=== PATIENT | female | born 1965 | race Caucasian/White ===

== ENCOUNTER 2018-07-31 21:09 | Inpatient (IN) ==
[2018-08-01] MEDS ORDERED: Morphine Inj 4 MG/ML Vial IV.PUSH ONE (02:02)
[2018-08-01] MEDS ORDERED: Sod Chloride 0.9% Inj 1,000 ML IV.SIG ONE (02:02)
--- NOTE | 2018-08-01 02:05 | ED ---
HPI General Chief Complaint: Abdominal Pain Stated Complaint: abd pain Time Seen by Provider: 08/01/18 02:02 Source: patient Mode of arrival: ambulatory Limitations: no limitations History of Present Illness HPI narrative: 53-year-old female patient with history of hysterectomy, hypertension, presents to the ER today because of 4 days history of right-sided abdominal pain, nausea and vomiting. She denies any fevers, diarrhea, urinary symptoms, or other issues. She is currently rating the pain a 10 out of 10. Modifying Factors: None Associated Signs & Symptoms: Right-sided abdominal pain, nausea and vomiting Risk Factors: None Related Data Home Medications Medication Instructions Recorded Confirmed amlodipine 08/01/18 08/01/18 fluoxetine [Prozac] 60 mg PO DAILY 08/01/18 08/01/18 hydroxyzine pamoate [Vistaril] 50 mg PO QID PRN 08/01/18 08/01/18 ibuprofen 800 mg PO TID PRN 08/01/18 08/01/18 tizanidine 4 mg PO Q6-8H PRN 08/01/18 08/01/18 Allergies Allergy/AdvReac Type Severity Reaction Status Date / Time No Known Allergies Allergy Verified 07/31/18 22:20 Review of Systems ROS: all other systems reviewed are negative PMFSH History History Provided By: Patient Medical History Medical History Tonsillectomy planned (Acute) Surgical History Surgical History History of partial hysterectomy (Acute) Social History Social History Substance History: Active Abuse Smoking Status: Current every day smoker Tobacco Type: Cigarettes How Often Do You Have a Drink Containing Alcohol: 2 to 4 times a month Recent Travel in [facility] within the Last 8 Weeks: No Recent Out of Country Travel within the Last 8 Weeks: No Exam Narrative Exam Narrative: GENERAL: Well-developed middle-age female patient currently in moderate distress. Awake and oriented x3. SKIN: Focused skin assessment warm/dry. HEAD: Atraumatic. Normocephalic. EYES: Pupils equal and round. No scleral icterus. No injection or drainage. ENT: No nasal bleeding or discharge. Mucous membranes pink and moist. NECK: Trachea midline. No JVD. CARDIOVASCULAR: Regular rate and rhythm. No murmur appreciated. RESPIRATORY: No accessory muscle use. Clear to auscultation. Breath sounds equal bilaterally. GASTROINTESTINAL: Abdomen soft, right upper quadrant tenderness without guarding rebound, nondistended. Hepatic and splenic margins not palpable. MUSCULOSKELETAL: No obvious deformities. No clubbing. No cyanosis. No edema. NEUROLOGICAL: Awake and alert. No obvious cranial nerve deficits. Motor grossly within normal limits. Normal speech. PSYCHIATRIC: Appropriate mood and affect; insight and judgment normal. Course Initial Documented Vital Signs Temperature 97.8 F 07/31/18 22:20 Pulse Rate 87 07/31/18 22:20 Respiratory Rate 18 07/31/18 22:20 Blood Pressure 125/74 07/31/18 22:20 Pulse Oximetry 98 07/31/18 22:20 Last Documented Vital Signs Temperature 97.8 F 07/31/18 22:20 Pulse Rate 80 08/01/18 02:35 Respiratory Rate 16 08/01/18 02:35 Blood Pressure 121/75 08/01/18 02:35 Pulse Oximetry 98 08/01/18 02:35 Medical Decision Making MDM Narrative Medical decision making narrative: CAT scan shows an acute cholecystitis and the case was discussed with Dr. Mariee who would like the patient to be medically admitted with consult for surgery tomorrow. Case is then discussed with Dr. Howard for admission. Medical Screen Exam Complete: Yes Emergency Medical Condition: Yes Differential Diagnosis Differential Diagnosis: Gastroenteritis versus cholecystitis versus appendicitis versus other acute intra-abdominal processes Lab Data Lab results reviewed: Yes I reviewed the patient's lab results. Result diagrams: 08/01/18 02:35 08/01/18 02:35 Lab Results 08/01/18 08/01/18 08/01/18 Range/Units 02:35 02:35 02:35 WBC 10.1 (4.0-11.0) th/mm3 RBC 3.61 L (4.00-5.30) mil/mm3 Hgb 10.0 L (11.6-15.3) gm/dL Hct 30.4 L (35.0-46.0) % MCV 84.0 (80.0-100.0) fL MCH 27.6 (27.0-34.0) pg MCHC 32.9 (32.0-36.0) % RDW 14.0 (11.6-17.2) % Plt Count 521 H (150-450) th/mm3 MPV 7.8 (7.0-11.0) fL Neut % (Auto) 60.1 (16.0-70.0) % Lymph % (Auto) 25.5 (9.0-44.0) % [place] % (Auto) 8.9 H (0.0-8.0) % Eos % (Auto) 4.7 H (0.0-4.0) % Baso % (Auto) 0.8 (0.0-2.0) % Neut # (Auto) 6.1 (1.8-7.7) th/mm3 Lymph # (Auto) 2.6 (1.0-4.8) th/mm3 [place] # (Auto) 0.9 (0.0-0.9) th/mm3 Eos # (Auto) 0.5 H (0.0-0.4) th/mm3 Baso # (Auto) 0.1 (0.0-0.2) th/mm3 WBC Differential . Differential Comment Auto diff final Sodium 139 (136-145) meq/L Potassium 3.0 L (3.5-5.1) meq/L Chloride 104 (98-107) meq/L Carbon Dioxide 25.5 (21.0-32.0) meq/L Anion Gap 10 (5-15) meq/L BUN 7 (7-18) mg/dL Creatinine 0.80 (0.50-1.00) mg/dL Estimated GFR 75 L (>89) mL/min Random Glucose 99 (74-106) mg/dL Calcium 8.8 (8.5-10.1) mg/dL Magnesium 1.8 (1.5-2.5) mg/dL Total Bilirubin 0.7 (0.2-1.0) mg/dL AST 84 H (15-37) U/L ALT 44 (10-53) U/L Alkaline Phosphatase 461 H (45-117) U/L Total Protein 7.8 (6.4-8.2) g/dL Albumin 3.1 L (3.4-5.0) g/dL Lipase 49 L (73-393) U/L Urine Color Straw (Yellw/Straw) Urine Clarity Hazy H (Clear) Urine pH 6.0 (5.0-8.5) Ur Specific [place] 1.001 L (1.002-1.035) Urine Protein Negative (Neg-Trace) mg/dL Urine Glucose (UA) Negative (Negative) mg/dL Urine Ketones Negative (Negative) mg/dL Urine Occult Blood Small H (Negative) Urine Nitrate Negative (Negative) Urine Bilirubin Negative (Negative) Urine Urobilinogen Less than 2 (Less than 2) mg/dL Ur Leukocyte Esterase Large H (Negative) Urine RBC 2 (0-3) /hpf Ur Squamous Epith Cells <1 (0-5) /hpf Amorphous Sediment Rare H (None) /hpf Urine Bacteria Rare H (None) /hpf Hyaline Casts 1 (0-3) /lpf Urine Mucus Few H (Occasional) /lpf Micro UA Comment Culture not ind Ur Microscopic Review Not Reportable Urine Culture Comments Culture not ind Imaging Data Attestation: I personally reviewed and interpreted this imaging study as follows : Radiologist's impression: Abdomen/Pelvis CT 08/01/18 02:02 CONCLUSION: 1. CT findings of acute cholecystitis without rupture. There is also apparent biliary obstruction at the level of the distal duct of unclear etiology. I don' t clearly see a mass or stone. 2. 2.2 cm mass of the right kidney, debris-filled cyst versus partly solid mass. Nonemergent outpatient abdomen MRI with and without contrast recommended. 3. Benign-appearing right ovarian cyst. 4. Sigmoid colon diverticulosis without diverticulitis. Discharge Plan Discharge Disposition Patient Disposition: 30 Still Patient Discharge Condition Condition: Stable Discharge Details Anticipated Discharge Date: 08/01/18 Diagnosis: Cholecystitis Physicians Team ED Provider: Ayad Chairez Primary Care Provider: UNKNOWN, Rxs /Orders / Referrals /Forms Prescriptions: No Action ibuprofen 800 mg Tablet 800 mg PO TID PRN (Reason: Pain) RF: 0 tizanidine 4 mg Tablet 4 mg PO Q6-8H PRN (Reason: Pain) RF: 0 hydroxyzine pamoate [Vistaril] 50 mg Capsule 50 mg PO QID PRN (Reason: Anxiety) RF: 0 fluoxetine [Prozac] 20 mg Capsule 60 mg PO DAILY RF: 0 amlodipine RF: 0 Discharge Interventions Interventions: Vital Signs Last Done: 08/01/18 02:35 Status ED Status: With Doctor
[2018-08-01 02:53] LABS: Baso # (Auto) 0.1 th/mm3 (0.0-0.2); Baso % (Auto) 0.8 % (0.0-2.0); Eos # (Auto) 0.5 th/mm3 (0.0-0.4); Eos % (Auto) 4.7 % (0.0-4.0); Hematocrit 30.4 % (35.0-46.0); Lymph # (Auto) 2.6 th/mm3 (1.0-4.8); Lymph % (Auto) 25.5 % (9.0-44.0); Mean Corpuscular HGB Conc 32.9 % (32.0-36.0); Mean Corpuscular Hemoglobin 27.6 pg (27.0-34.0); Mean Platelet Volume 7.8 fL (7.0-11.0); Mono # (Auto) 0.9 th/mm3 (0.0-0.9); Mono % (Auto) 8.9 % (0.0-8.0); Neut # (Auto) 6.1 th/mm3 (1.8-7.7); Neut % (Auto) 60.1 % (16.0-70.0); Platelet Count 521 th/mm3 (150-450); Red Blood Count 3.61 mil/mm3 (4.00-5.30); White Blood Count 10.1 th/mm3 (4.0-11.0)
[2018-08-01 02:54] LABS: Amorphous Sediment,Urine Rare /hpf; Bacteria,Urine Rare /hpf; Bilirubin,Urine Negative (Negative); Clarity,Urine Hazy (Clear); Color,Urine Straw (Yellw/Straw); Glucose,Urine (UA) Negative (Negative); Hyaline Casts,Urine 1 /lpf (0-3); Leukocyte Esterase,Urine Large (Negative); Mucus,Urine Few /lpf (Occasional); Nitrite,Urine Negative (Negative); Specific Gravity,Urine 1.001 (1.002-1.035); Squamous Epithelial Cell,Urine <1 /hpf (0-5)
[2018-08-01 03:10] LABS: Alanine Aminotransferase 44 U/L (10-53); Albumin 3.1 g/dL (3.4-5.0); Anion Gap 10 meq/L (5-15); Aspartate Aminotransferase 84 U/L (15-37); Blood Urea Nitrogen 7 mg/dL (7-18); Calcium 8.8 mg/dL (8.5-10.1); Carbon Dioxide 25.5 meq/L (21.0-32.0); Chloride 104 meq/L (98-107); Glomerular Filtration Rate 75 mL/min (>89); Glucose,Random 99 mg/dL (74-106); Lipase 49 U/L (73-393); Magnesium 1.8 mg/dL (1.5-2.5); Sodium 139 meq/L (136-145)
[2018-08-01 03:12] LABS: Alkaline Phosphatase 461 U/L (45-117); Total Protein 7.8 g/dL (6.4-8.2)
--- NOTE | 2018-08-01 03:54 | CT ---
EXAM DATE: 08/01/2018 3:40 AM EST AGE/SEX: 53 years / Female INDICATIONS: Right sided abdominal pain, vomiting. CLINICAL DATA: This is the patient's initial encounter. Patient reports that signs and symptoms have been present for 3 days and indicates a pain score of 7/10. MEDICAL/SURGICAL HISTORY: Hypertension. . Partial hysterectomy. ORAL CONTRAST: No oral contrast ingested. RADIATION DOSE: 7.77 CTDI (mGy) COMPARISON: No prior exams available for comparison. TECHNIQUE: Multiple contiguous axial images were obtained through the abdomen and pelvis following b olus infusion of 70 ml Omnipaque 350 (iohexol) nonionic water-soluble contrast as a single exam dos e. No oral contrast ingested. Using automated exposure control and adjustment of the mA and/or kV ac cording to patient size, radiation dose was kept as low as reasonably achievable to obtain optimal di agnostic quality images. DICOM format image data is available electronically for review and comparis on. FINDINGS: Gallbladder is distended, has wall thickening, mucosal enhancement and small pericholecystic fluid. C ommon bile duct measures approximately 1 cm. There is mild intrahepatic biliary distention as well. I don't convincingly see a stone. No perceptible mass. No hepatic lesion. The spleen, pancreas, adrenal glands and left kidney are all within normal limits. Mildly lobulated intermediate attenuation 2.2 cm mass is seen of the mid zone to lower pole of the r ight kidney, potentially solid. No obstruction or inflammatory changes seen of the gastrointestinal tract. Diverticulosis seen in the sigmoid colon. No diverticulitis. No free fluid or free air. No lymphadenopathy. Previous hysterectomy. There is a 2.3 cm benign-appearing cyst of the right ovary. There is mild atelectasis of the visualized lung bases. A focal area of apparent pneumonic infiltrate is seen of the visualized left lower lobe. CONCLUSION: 1. CT findings of acute cholecystitis without rupture. There is also apparent biliary obstruction at the level of the distal duct of unclear etiology. I don't clearly see a mass or stone. 2. 2.2 cm mass of the right kidney, debris-filled cyst versus partly solid mass. Nonemergent outpati ent abdomen MRI with and without contrast recommended. 3. Benign-appearing right ovarian cyst. 4. Sigmoid colon diverticulosis without diverticulitis. Electronically signed by: Michele Martines MD 08/01/2018 3:53 AM EST
[2018-08-01] MEDS ORDERED: Zolpidem Tartrate 5 MG Tablet PO PRN (04:35)
[2018-08-01] MEDS ORDERED: Bisacodyl 10 MG Supp RECTAL PRN (04:35)
[2018-08-01] MEDS ORDERED: Acetaminophen 325 MG Tablet PO PRN (04:35)
[2018-08-01] MEDS ORDERED: Naloxone Inj 0.4 MG/ML Vial IV.PUSH PRN (04:35)
[2018-08-01] MEDS ORDERED: Sodium Chloride 0.9% 2 ML Flush PRN IV.FLUSH (04:43)
[2018-08-01] MEDS ORDERED: Sod Chloride 0.9% Inj 1,000 ML IV.CONT SCH (04:45)
[2018-08-01] MEDS: Morphine Sulfate Inj 2 MG/ML Vial IV.PUSH PRN ×2 (05:31→09:51)
--- NOTE | 2018-08-01 08:13 | P.CONGS ---
[facility] Gen Surgery Consult Note Consult date: 08/01/18 Reason for consult: abdominal pain Requesting physician: Lupe Conley Narrative: This is a 53 year old female with a past medical history of hypertension who presented to the ED with about a week long history of abdominal pain with associated nausea, vomiting and chills. Pain is 8/10, comes and goes, worse with movement, better with sitting still. Her pain has never been this severe, Sharp in nature. A CT scan was done with is consistent with acute cholecystitis with an enlarged common bile duct. Her WBC is normal. A General Surgery consultation has been requested. Review of Systems All other systems reviewed negative except as stated in [facility] - History History Provided By: Patient - Medical History Medical History: Medical History (Last Updated 08/01/18 @ 08:08 by DAGOBERTO Varner) Hypertension - Surgical History Surgical History: Surgical History (Last Reviewed 08/05/18 @ 13:39 by Fredrick Batres MD) History of partial hysterectomy - Family History Family History: Family History (Last Reviewed 08/05/18 @ 13:39 by Fredrick Batres MD) Other CVA (cerebral vascular accident) - Tobacco History Second Hand Smoke Exposure: No Tobacco Use In Past 30 Days: Yes Smoking Status: Light tobacco smoker Tobacco Type: Cigarettes - Alcohol History How Often Do You Have a Drink Containing Alcohol: 2 to 4 times a month - Substance Use History Substance History: Past History - Substance Use Type Marijuana Type: Marijuana Status: Active Route Used: Inhalation Frequency: Couple times a week. Reason for Use: Feels Good - Travel History Recent Travel in the [place] Within the Last 8 Weeks: No Recent Travel Out of the Country Within the Last 8 Weeks: No - Immunization History Tetanus Immunization: <5 Years Medications and Allergies Allergies Allergy/AdvReac Type Severity Reaction Status Date / Time No Known Allergies Allergy Verified 07/31/18 22:20 Home Medications Medication Instructions Recorded Confirmed Type Prozac 30 mg PO BID 08/01/18 08/01/18 History amlodipine 5 mg PO DAILY 08/01/18 08/01/18 History fluoxetine [Prozac] 60 mg PO DAILY 08/01/18 08/01/18 History gabapentin 300 mg PO TID 08/01/18 08/01/18 History hydroxyzine pamoate [Vistaril] 50 mg PO QID PRN 08/01/18 08/01/18 History ibuprofen 800 mg PO TID PRN 08/01/18 08/01/18 History tizanidine 4 mg PO Q6-8H PRN 08/01/18 08/01/18 History Active Medications: Active Medications Acetaminophen (Tylenol) 650 mg PO Q4H PRN PRN Reason: Temp > 100.4 Bisacodyl (Dulcolax Supp) 10 mg RECTAL DAILY PRN PRN Reason: SEVERE CONSITIPATION Sodium Chloride (Ns Inj) 1,000 mls @ 100 mls/hr IV.CONT .Q10H EDWAR Last Admin: 08/01/18 05:30 Dose: 100 mls/hr Piperacillin/Tazobactam/Dextrose (Zosyn 3.375 Gm Premix) 50 mls @ 100 mls/hr IV.SIG Q8H EDWAR Morphine Sulfate (Morphine Inj) 2 mg IV.PUSH Q3H PRN PRN Reason: pain>4 Last Admin: 08/01/18 05:31 Dose: 2 mg Naloxone HCl (Narcan Inj) 0.4 mg IV.PUSH UNSCH PRN PRN Reason: SEE LABEL COMMENTS Ondansetron HCl (Zofran Inj) 4 mg IV.PUSH Q6H PRN PRN Reason: NAUSEA OR VOMITING Last Admin: 08/01/18 05:30 Dose: 4 mg Sennosides (Senokot) 17.2 mg PO Q12H PRN PRN Reason: Moderate Constipation Sodium Chloride (Ns Flush) 2 ml IV.FLUSH BID EDWAR Sodium Chloride (Ns Flush) 2 ml IV.FLUSH PRN PRN PRN Reason: FLUSH AFTER USING IV ACCESS Zolpidem Tartrate (Ambien) 5 mg PO HS PRN PRN Reason: INSOMNIA Exam Vital signs: Vital Signs 07/31/18 22:20 08/01/18 02:35 08/01/18 04:29 Temperature 97.8 F Pulse Rate 87 80 82 Respiratory Rate 18 16 16 Blood Pressure 125/74 121/75 144/75 H Pulse Oximetry 98 98 99 08/01/18 05:33 Temperature Pulse Rate Respiratory Rate 16 Blood Pressure Pulse Oximetry Intake & Output 07/31/18 08/01/18 08/01/18 18:59 06:59 18:59 Intake Total 1000 / 1000 Balance 1000 / 1000 Weight 77.111 kg Intake: IV 1000 / 1000 NS Inj 1,000 ML @ Wide Open IV. 1000 / 1000 SIG BOLUS ONE Rx#:[id number] Other: # Voids 1 Date of Last Bowel Movement 08/01/18 Narrative: GENERAL: Alert and awake female resting in bed in no acute distress. SKIN: Warm and dry. HEAD: Atraumatic. Normocephalic. EYES: Pupils equal and round. No scleral icterus. No injection or drainage. ENT: No nasal bleeding or discharge. Mucous membranes pink and moist. NECK: Trachea midline. CARDIOVASCULAR: Regular rate and rhythm. RESPIRATORY: No accessory muscle use. Clear to auscultation. Breath sounds equal bilaterally. GASTROINTESTINAL: Abdomen soft, mildly distended. RUQ tenderness with palpation. Well healed lower midline incision. MUSCULOSKELETAL: Extremities without clubbing, cyanosis, or edema. No obvious deformities. NEUROLOGICAL: Awake and alert. No obvious cranial nerve deficits. Motor grossly within normal limits. Five out of 5 muscle strength in the arms and legs. Normal speech. PSYCHIATRIC: Appropriate mood and affect; insight and judgment normal. Results - Labs 08/05/18 09:57 08/05/18 09:57 Laboratory Results - last 24 hr 08/01/18 08/01/18 08/01/18 02:35 02:35 02:35 WBC 10.1 RBC 3.61 L Hgb 10.0 L Hct 30.4 L MCV 84.0 MCH 27.6 MCHC 32.9 RDW 14.0 Plt Count 521 H MPV 7.8 Neut % (Auto) 60.1 Lymph % (Auto) 25.5 [place] % (Auto) 8.9 H Eos % (Auto) 4.7 H Baso % (Auto) 0.8 Neut # (Auto) 6.1 Lymph # (Auto) 2.6 [place] # (Auto) 0.9 Eos # (Auto) 0.5 H Baso # (Auto) 0.1 WBC Differential . Differential Comment Auto diff final Sodium 139 Potassium 3.0 L Chloride 104 Carbon Dioxide 25.5 Anion Gap 10 BUN 7 Creatinine 0.80 Estimated GFR 75 L Random Glucose 99 Calcium 8.8 Magnesium 1.8 Total Bilirubin 0.7 AST 84 H ALT 44 Alkaline Phosphatase 461 H Total Protein 7.8 Albumin 3.1 L Lipase 49 L Urine Color Straw Urine Clarity Hazy H Urine pH 6.0 Ur Specific [place] 1.001 L Urine Protein Negative Urine Glucose (UA) Negative Urine Ketones Negative Urine Occult Blood Small H Urine Nitrate Negative Urine Bilirubin Negative Urine Urobilinogen Less than 2 Ur Leukocyte Esterase Large H Urine RBC 2 Ur Squamous Epith Cells <1 Amorphous Sediment Rare H Urine Bacteria Rare H Hyaline Casts 1 Urine Mucus Few H Micro UA Comment Culture not ind Ur Microscopic Review Not Reportable Urine Culture Comments Culture not ind - Imaging Imaging: ITS Impressions Abdomen/Pelvis CT 08/01/18 02:02 CONCLUSION: 1. CT findings of acute cholecystitis without rupture. There is also apparent biliary obstruction at the level of the distal duct of unclear etiology. I don' t clearly see a mass or stone. 2. 2.2 cm mass of the right kidney, debris-filled cyst versus partly solid mass. Nonemergent outpatient abdomen MRI with and without contrast recommended. 3. Benign-appearing right ovarian cyst. 4. Sigmoid colon diverticulosis without diverticulitis. CT scan - abdomen: image reviewed Assessment and Plan - Assessment (1) Cholecystitis Code(s): K81.9 - Cholecystitis, unspecified Status: Acute Plan: 53 year old female with RUQ abdominal pain -Plan for US this morning to evaluate the CBD -Based on US will determine if patient needs ERCP today and delayed laparoscopic cholecystectomy -NPO -IVF -Added Zosyn -Thank you for this consult; We will continue to follow - Attending Attestation patient seen at bedside significant pain, right side acute cholecysitis abx pain control will plan for OR discussed with patient The exam, history, and the medical decision-making described in the above note were completed with the assistance of the mid-level provider. I reviewed and agree with the findings presented. I attest that I had a [id number] encounter with the patient on the same day, and personally performed and documented my assessment and findings in the medical record.
[2018-08-01] MEDS ORDERED: Metoprolol Tartrate 25 MG Tablet PO ONE (08:57)
[2018-08-01] MEDS ORDERED: Chlorhexidine Gluconate 2% 1 Pack (2 Cloths) TOPICAL ONE (08:57)
[2018-08-01] MEDS ORDERED: Sodium Chlor 0.9% Inj 500 ML IV.SIG SCH (09:00)
[2018-08-01] MEDS ORDERED: fentaNYL Citrate Inj 250 MCG/5 ML Ampul ONE (09:05)
[2018-08-01] MEDS ORDERED: Famotidine PF Inj 20 MG/2 ML Vial ONE (09:05)
[2018-08-01] MEDS ORDERED: Ketamine Inj 50 MG/5 ML Syringe IV.PUSH ONE (09:06)
[2018-08-01] MEDS: Piperacil/Tazo 3.375 GM Premix 50 ML IV.SIG SCH ×2 (09:50→18:37)
--- NOTE | 2018-08-01 10:27 | US ---
EXAM DATE: 08/01/2018 10:19 AM EST AGE/SEX: 53 years / Female INDICATIONS: Right upper quadrant pain. CLINICAL DATA: This is the patient's initial encounter. Patient reports that signs and symptoms have been present for 2 days and indicates a pain score of 8/10. MEDICAL/SURGICAL HISTORY: Hypertension. Hysterectomy. COMPARISON: [facility] [place] [facility] [place], 08/01/2018. . MEASUREMENTS: Liver:__ 15.6 cm. Common Bile Duct:__ 11mm. FINDINGS: Liver: Normal echotexture without focal lesion or ductal dilatation. Portal Vein: Hepatopedal flow seen in portal vein. Common Duct: Dilated common duct without definite common duct stone by either CT or ultrasound Gallbladder: Thickened gallbladder wall with sludge. No stones Pancreas: Prominent pancreatic duct Right Kidney: 1.6 cm cyst without hydronephrosis Other: No ascites CONCLUSION: 1. Abnormal common duct and gallbladder. MRCP would be of benefit. Electronically signed by: Gianfranco Mahoney MD 08/01/2018 10:26 AM EST
[2018-08-01] MEDS: Potassium Chlor 20 mEq Premix 20 MEQ/100 ML PIGGYBACK IV.SIG SCH ×2 (10:47→15:12)
--- NOTE | 2018-08-01 11:13 | P.HP ---
History of Present Illness Primary Care Physician: UNKNOWN Chief Complaint: Abdominal pain History of Present Illness: This is a 54-year-old female with a history of hypertension. She presents to the emergency department because of abdominal pain for 1 week. She describes a sharp right upper quadrant pain initially intermittent becoming severe and constant associated with nausea, vomiting, subjective fever and chills. No precipitating or alleviating factors. Denies UTI symptoms, constipation and diarrhea. Abdominal CT with acute cholecystitis and dilated common bile duct. Also has 2.2 cm mass of the right kidney. Ultrasound with abnormal common bile duct and gallbladder and recommended MRCP. Surgery has recommended laparoscopic surgery pending MRCP. All other systems reviewed negative Inpatient Certification: I certify that the inpatient services were ordered in accordance with Medicare regulations governing the order. This includes certification that hospital inpatient services are reasonable and necessary and in the case of services not specified as inpatient-only under 42 CFR 419.22(n), that they are appropriately provided as inpatient services in accordance to with the 2-midnight benchmark under 43 CFR 412.3(e) Estimated Total Length of Stay (Days): 2 Plans for Post Hospital Care: Not yet determined Review of Systems All other systems reviewed negative except as stated in HPI PMFSH - History History Provided By: Patient - Medical History Medical History: Medical History (Last Reviewed 08/01/18 @ 14:07 by Gen Schmid MD) Hypertension - Surgical History Surgical History: Surgical History (Last Reviewed 08/01/18 @ 14:07 by Gen Schmid MD) History of partial hysterectomy - Family History Family History: Family History (Last Updated 08/01/18 @ 14:08 by Gen Schmid MD) Other CVA (cerebral vascular accident) - Social History I have reviewed the patient's Social History: Yes - Tobacco History Second Hand Smoke Exposure: No Tobacco Use In Past 30 Days: Yes Smoking Status: Light tobacco smoker Tobacco Type: Cigarettes - Alcohol History How Often Do You Have a Drink Containing Alcohol: 2 to 4 times a month - Substance Use History Substance History: Past History - Substance Use Type Marijuana Type: Marijuana Status: Active Route Used: Inhalation Frequency: Couple times a week. Reason for Use: Feels Good - Travel History Recent Travel in the [place] Within the Last 8 Weeks: No Recent Travel Out of the Country Within the Last 8 Weeks: No - Immunization History Tetanus Immunization: <5 Years Medications and Allergies Active Medications: Active Medications Acetaminophen (Tylenol) 650 mg PO Q4H PRN PRN Reason: Temp > 100.4 Bisacodyl (Dulcolax Supp) 10 mg RECTAL DAILY PRN PRN Reason: SEVERE CONSITIPATION Clonidine HCl (Catapres) 0.1 mg PO Q6H PRN PRN Reason: SEE LABEL COMMENTS Enalaprilat (Vasotec Inj) 1.25 mg IV.PUSH Q6H PRN PRN Reason: SEE LABEL COMMENTS Piperacillin/Tazobactam/Dextrose (Zosyn 3.375 Gm Premix) 50 mls @ 100 mls/hr IV.SIG Q8H EDWAR Last Infusion: 08/01/18 10:22 Dose: Infused Lactated Ringer's (Lr 1000 Ml Inj) 1,000 mls @ 30 mls/hr IV.SIG .Q24H EDWAR Stop: 08/02/18 08:59 Sodium Chloride (Ns Inj) 500 mls @ 30 mls/hr IV.SIG .Q10H EWDAR Potassium Chloride 20 meq/ (Lactated Ringer's) 1,010 mls @ 100 mls/hr IV.CONT .Q10H6M EDWAR Last Admin: 08/01/18 10:47 Dose: 100 mls/hr Potassium Chloride (Kcl 20 Meq Premix Inj) 20 meq in 100 mls @ 50 mls/hr IV.SIG Q2H EDWAR Stop: 08/01/18 14:59 Last Admin: 08/01/18 10:47 Dose: 50 mls/hr Morphine Sulfate (Morphine Inj) 2 mg IV.PUSH Q3H PRN PRN Reason: pain>4 Last Admin: 08/01/18 09:51 Dose: 2 mg Naloxone HCl (Narcan Inj) 0.4 mg IV.PUSH UNSCH PRN PRN Reason: SEE LABEL COMMENTS Ondansetron HCl (Zofran Inj) 4 mg IV.PUSH Q6H PRN PRN Reason: NAUSEA OR VOMITING Last Admin: 08/01/18 05:30 Dose: 4 mg Sennosides (Senokot) 17.2 mg PO Q12H PRN PRN Reason: Moderate Constipation Sodium Chloride (Ns Flush) 2 ml IV.FLUSH BID EDWAR Sodium Chloride (Ns Flush) 2 ml IV.FLUSH PRN PRN PRN Reason: FLUSH AFTER USING IV ACCESS Zolpidem Tartrate (Ambien) 5 mg PO HS PRN PRN Reason: INSOMNIA Allergies Allergy/AdvReac Type Severity Reaction Status Date / Time No Known Allergies Allergy Verified 07/31/18 22:20 Home Medications Medication Instructions Recorded Confirmed Type Prozac 30 mg PO BID 08/01/18 08/01/18 History amlodipine 5 mg PO DAILY 08/01/18 08/01/18 History fluoxetine [Prozac] 60 mg PO DAILY 08/01/18 08/01/18 History gabapentin 300 mg PO TID 08/01/18 08/01/18 History hydroxyzine pamoate [Vistaril] 50 mg PO QID PRN 08/01/18 08/01/18 History ibuprofen 800 mg PO TID PRN 08/01/18 08/01/18 History tizanidine 4 mg PO Q6-8H PRN 08/01/18 08/01/18 History Exam Vital signs: Vital Signs 07/31/18 22:20 08/01/18 02:35 08/01/18 04:29 Temperature 97.8 F Pulse Rate 87 80 82 Respiratory Rate 18 16 16 Blood Pressure 125/74 121/75 144/75 H Pulse Oximetry 98 98 99 08/01/18 05:33 08/01/18 08:00 Temperature 98.6 F Pulse Rate 85 Respiratory Rate 16 16 Blood Pressure 153/92 H Pulse Oximetry 98 Intake & Output 07/31/18 08/01/18 08/01/18 18:59 06:59 18:59 Intake Total 1000 / 1000 550 / 550 Balance 1000 / 1000 550 / 550 Weight 77.111 kg Intake: IV 1000 / 1000 550 / 550 NS Inj 1,000 ML @ 100 mls/hr IV 500 / 500 .CONT .Q10H EDWAR Rx#:[id number] Zosyn 3.375 GM Premix 50 ML @ 50 / 50 100 mls/hr IV.SIG Q8H EDWAR Rx#: [id number] NS Inj 1,000 ML @ Wide Open IV. 1000 / 1000 SIG BOLUS ONE Rx#:[id number] Other: # Voids 1 Date of Last Bowel Movement 08/01/18 Narrative: GENERAL: Well-developed, well-nourished in distress due to pain SKIN: Warm and dry. HEAD: Atraumatic. Normocephalic. EYES: Pupils equal and round. No scleral icterus. No injection or drainage. ENT: No nasal bleeding or discharge. Mucous membranes pink and moist. NECK: Trachea midline. No JVD. CARDIOVASCULAR: Regular rate and rhythm. RESPIRATORY: No accessory muscle use. Clear to auscultation. Breath sounds equal bilaterally. GASTROINTESTINAL: Abdomen soft, tender right upper and epigastric areas, nondistended. MUSCULOSKELETAL: Extremities without clubbing, cyanosis, or edema. No obvious deformities. NEUROLOGICAL: Awake and alert. No obvious cranial nerve deficits. Motor grossly within normal limits. Five out of 5 muscle strength in the arms and legs. Normal speech. PSYCHIATRIC: Appropriate mood and affect; insight and judgment normal. Results - Labs CBC & Chem 7: 08/01/18 02:35 08/01/18 02:35 Labs: Laboratory Results - last 24 hr 08/01/18 08/01/18 08/01/18 02:35 02:35 02:35 WBC 10.1 RBC 3.61 L Hgb 10.0 L Hct 30.4 L MCV 84.0 MCH 27.6 MCHC 32.9 RDW 14.0 Plt Count 521 H MPV 7.8 Neut % (Auto) 60.1 Lymph % (Auto) 25.5 [place] % (Auto) 8.9 H Eos % (Auto) 4.7 H Baso % (Auto) 0.8 Neut # (Auto) 6.1 Lymph # (Auto) 2.6 [place] # (Auto) 0.9 Eos # (Auto) 0.5 H Baso # (Auto) 0.1 WBC Differential . Differential Comment Auto diff final Sodium 139 Potassium 3.0 L Chloride 104 Carbon Dioxide 25.5 Anion Gap 10 BUN 7 Creatinine 0.80 Estimated GFR 75 L Random Glucose 99 Calcium 8.8 Magnesium 1.8 Total Bilirubin 0.7 AST 84 H ALT 44 Alkaline Phosphatase 461 H Total Protein 7.8 Albumin 3.1 L Lipase 49 L Urine Color Straw Urine Clarity Hazy H Urine pH 6.0 Ur Specific [place] 1.001 L Urine Protein Negative Urine Glucose (UA) Negative Urine Ketones Negative Urine Occult Blood Small H Urine Nitrate Negative Urine Bilirubin Negative Urine Urobilinogen Less than 2 Ur Leukocyte Esterase Large H Urine RBC 2 Ur Squamous Epith Cells <1 Amorphous Sediment Rare H Urine Bacteria Rare H Hyaline Casts 1 Urine Mucus Few H Micro UA Comment Culture not ind Ur Microscopic Review Not Reportable Urine Culture Comments Culture not ind - Imaging Impressions Gallbladder Ultrasound 08/01/18 00:00 CONCLUSION: 1. Abnormal common duct and gallbladder. MRCP would be of benefit. Abdomen/Pelvis CT 08/01/18 02:02 CONCLUSION: 1. CT findings of acute cholecystitis without rupture. There is also apparent biliary obstruction at the level of the distal duct of unclear etiology. I don' t clearly see a mass or stone. 2. 2.2 cm mass of the right kidney, debris-filled cyst versus partly solid mass. Nonemergent outpatient abdomen MRI with and without contrast recommended. 3. Benign-appearing right ovarian cyst. 4. Sigmoid colon diverticulosis without diverticulitis. Caprini VTE Risk Assessment Caprini VTE Risk Assessment: No/Low Risk (score <= 1) Caprini Risk Assessment Model: Point Value = 1 Point Value = 2 Point Value = 3 Point Value = 5 Age 41-60 Minor surgery BMI > 25 kg/m2 Swollen legs Varicose veins or History of unexplained or recurrent spontaneous Oral contraceptives or hormone replacement Sepsis (< 1 month) Serious lung disease, including pneumonia (< 1 month) Abnormal pulmonary function Acute myocardial infarction Congestive heart failure (< 1 month) History of inflammatory bowel disease Medical patient at bed rest Age 61-74 Arthroscopic surgery Major open surgery (> 45 min) Laparoscopic surgery (> 45 min) Malignancy Confined to bed (> 72 hours) Immobilizing plaster cast Central venous access Age >= 75 History of VTE Family history of VTE Factor V Leiden Prothrombin [id number] Lupus anticoagulant Anticardiolipin antibodies Elevated serum homocysteine Heparin-induced thrombocytopenia Other congenital or acquired thrombophilia Stroke (< 1 month) Elective arthroplasty Hip, pelvis, or leg fracture Acute spinal cord injury (< 1 month) Prophylaxis Regimen: Total Risk Factor Score Risk Level Prophylaxis Regimen 0-1 Low Early ambulation 2 Moderate Order ONE of the following: *Sequential Compression Device (SCD) *Heparin 5000 units SQ BID 3-4 Higher Order ONE of the following medications: *Heparin 5000 units SQ TID *Enoxaparin/Lovenox 40 mg SQ daily (WT < 150 kg, CrCl > 30 mL/min) *Enoxaparin/Lovenox 30 mg SQ daily (WT < 150 kg, CrCl > 10-29 mL/min) *Enoxaparin/Lovenox 30 mg SQ BID (WT < 150 kg, CrCl > 30 mL/min) AND/OR *Sequential Compression Device (SCD) 5 or more Highest Order ONE of the following medications: *Heparin 5000 units SQ TID (Preferred with Epidurals) *Enoxaparin/Lovenox 40 mg SQ daily (WT < 150 kg, CrCl > 30 mL/min) *Enoxaparin/Lovenox 30 mg SQ daily (WT < 150 kg, CrCl > 10-29 mL/min) *Enoxaparin/Lovenox 30 mg SQ BID (WT < 150 kg, CrCl > 30 mL/min) AND *Sequential Compression Device (SCD) Assessment and Plan - Plan This is a 54-year-old female with a history of hypertension. She presents with abdominal pain, nausea, vomiting, fever and chills. CT shows acute cholecystitis and dilated common bile duct Acute cholecystitis. N.p.o., IV hydration and pain management with IV morphine general surgery for laparoscopic cholecystectomy pending MRCP Dilated common bile duct. For MRCP 2.2 cm mass of the right kidney. Outpatient MRI Normocytic normochromic anemia. No gross bleeding. Will monitor Hypokalemia potassium 3 magnesium 1.8. Replace with 40 mEq IV potassium. Monitor on telemetry EKG independently reviewed by me with sinus rhythm DVT prophylaxis with SCD Discharge Planning: Per GS and GI
[2018-08-01] MEDS ORDERED: Morphine Sulfate Inj 2 MG/ML Vial IV.PUSH PRN (11:34)
[2018-08-01] MEDS: Morphine Inj 4 MG/ML Vial IV.PUSH PRN ×3 (11:48→20:07)
[2018-08-01] MEDS: Sodium Chloride 0.9% 2 ML Flush BID IV.FLUSH SCH ×2 (11:51→20:07)
--- NOTE | 2018-08-01 13:42 | P.CONGI ---
History of Present Illness Consult date: 08/01/18 Consult reason: 1 cm common bile duct Chief complaint: Acute Cholecystitis History of Present Illness: This patient is a 53-year-old female with past medical history significant for hypertension. Surgical history includes hysterectomy. This patient presented to the emergency room at [facility] with report of 4-day onset of right sided mid to upper abdominal pain with nausea and vomiting. Patient describes the pain as sharp and states that is is constant. There are no reported alleviating or aggravating factors. Patient rates pain at 9 out of 10 at this time. She denies any radiation of pain and reports associated nausea and vomiting with chills and no fever. Patient denies ever having had EGD or colonoscopy in the past. She denies any known family history for gastrointestinal disorders. Patient denies any use of alcohol products but states that she smokes 2 cigarettes daily. Patient denies diarrhea but reports occasional constipation for which she takes Ex-Lax. She reports soft brown stools daily without any noted bleeding. On admission to ER CT showed acute cholecystitis without rupture and questionable biliary obstruction. Gallbladder ultrasound reveals abnormal gallbladder and common bile duct. MRCP ordered. <Karen Choi - Last Filed: 08/01/18 13:32> Review of Systems All other systems reviewed negative except as stated in HPI <Karen Choi - Last Filed: 08/01/18 13:32> PMFSH - History History Provided By: Patient - Medical History Medical History: Medical History (Last Updated 08/01/18 @ 08:08 by DAGOBERTO Varner) Hypertension - Surgical History Surgical History: Surgical History (Last Reviewed 08/01/18 @ 02:04 by Ayad Chairez MD) History of partial hysterectomy - Tobacco History Second Hand Smoke Exposure: No Tobacco Use In Past 30 Days: Yes Smoking Status: Light tobacco smoker Tobacco Type: Cigarettes - Alcohol History How Often Do You Have a Drink Containing Alcohol: 2 to 4 times a month - Substance Use History Substance History: Past History - Substance Use Type Marijuana Type: Marijuana Status: Active Route Used: Inhalation Frequency: Couple times a week. Reason for Use: Feels Good - Travel History Recent Travel in the [place] Within the Last 8 Weeks: No Recent Travel Out of the Country Within the Last 8 Weeks: No - Immunization History Tetanus Immunization: <5 Years <Karen Choi - Last Filed: 08/01/18 13:32> - Medical History Medical History: Medical History (Last Updated 08/01/18 @ 08:08 by DAGOBERTO Varner) Hypertension - Surgical History Surgical History: Surgical History (Last Reviewed 08/01/18 @ 02:04 by Ayad Chairez MD) History of partial hysterectomy <Caron Cheney - Last Filed: 08/01/18 19:08> Medications and Allergies Active Medications: Active Medications Acetaminophen (Tylenol) 650 mg PO Q4H PRN PRN Reason: Temp > 100.4 Bisacodyl (Dulcolax Supp) 10 mg RECTAL DAILY PRN PRN Reason: SEVERE CONSITIPATION Clonidine HCl (Catapres) 0.1 mg PO Q6H PRN PRN Reason: SEE LABEL COMMENTS Enalaprilat (Vasotec Inj) 1.25 mg IV.PUSH Q6H PRN PRN Reason: SEE LABEL COMMENTS Piperacillin/Tazobactam/Dextrose (Zosyn 3.375 Gm Premix) 50 mls @ 100 mls/hr IV.SIG Q8H EDWAR Last Infusion: 08/01/18 10:22 Dose: Infused Lactated Ringer's (Lr 1000 Ml Inj) 1,000 mls @ 30 mls/hr IV.SIG .Q24H EDWAR Stop: 08/02/18 08:59 Sodium Chloride (Ns Inj) 500 mls @ 30 mls/hr IV.SIG .Q10H EDWAR Potassium Chloride 20 meq/ (Lactated Ringer's) 1,010 mls @ 100 mls/hr IV.CONT .Q10H6M EDWAR Last Infusion: 08/01/18 11:00 Dose: 50 mls/hr Potassium Chloride (Kcl 20 Meq Premix Inj) 20 meq in 100 mls @ 50 mls/hr IV.SIG Q2H EDWAR Stop: 08/01/18 14:59 Last Infusion: 08/01/18 12:56 Dose: Infused Morphine Sulfate (Morphine Inj) 2 mg IV.PUSH Q3H PRN PRN Reason: PAIN 3-5; IF UABLE TO TAKE PO Morphine Sulfate (Morphine Inj) 4 mg IV.PUSH Q3H PRN PRN Reason: PAIN 6-10;IF UNABLE TO TAKE PO Morphine Sulfate (Morphine Inj) 4 mg IV.PUSH Q3H PRN PRN Reason: BREAKTHROUGH PAIN Last Admin: 08/01/18 11:48 Dose: 4 mg Naloxone HCl (Narcan Inj) 0.4 mg IV.PUSH UNSCH PRN PRN Reason: SEE LABEL COMMENTS Ondansetron HCl (Zofran Inj) 4 mg IV.PUSH Q6H PRN PRN Reason: NAUSEA OR VOMITING Last Admin: 08/01/18 11:45 Dose: 4 mg Sennosides (Senokot) 17.2 mg PO Q12H PRN PRN Reason: Moderate Constipation Sodium Chloride (Ns Flush) 2 ml IV.FLUSH BID EDWAR Last Admin: 08/01/18 11:51 Dose: 2 ml Sodium Chloride (Ns Flush) 2 ml IV.FLUSH PRN PRN PRN Reason: FLUSH AFTER USING IV ACCESS Zolpidem Tartrate (Ambien) 5 mg PO HS PRN PRN Reason: INSOMNIA <Choi,Karen - Last Filed: 08/01/18 13:32> Active Medications: Active Medications Acetaminophen (Tylenol) 650 mg PO Q4H PRN PRN Reason: Temp > 100.4 Bisacodyl (Dulcolax Supp) 10 mg RECTAL DAILY PRN PRN Reason: SEVERE CONSITIPATION Clonidine HCl (Catapres) 0.1 mg PO Q6H PRN PRN Reason: SEE LABEL COMMENTS Enalaprilat (Vasotec Inj) 1.25 mg IV.PUSH Q6H PRN PRN Reason: SEE LABEL COMMENTS Piperacillin/Tazobactam/Dextrose (Zosyn 3.375 Gm Premix) 50 mls @ 100 mls/hr IV.SIG Q8H EDWAR Last Admin: 08/01/18 18:37 Dose: 100 mls/hr Lactated Ringer's (Lr 1000 Ml Inj) 1,000 mls @ 30 mls/hr IV.SIG .Q24H EDWAR Stop: 08/02/18 08:59 Sodium Chloride (Ns Inj) 500 mls @ 30 mls/hr IV.SIG .Q10H EDWAR Potassium Chloride 20 meq/ (Lactated Ringer's) 1,010 mls @ 100 mls/hr IV.CONT .Q10H6M EDWAR Last Infusion: 08/01/18 11:00 Dose: 50 mls/hr Morphine Sulfate (Morphine Inj) 2 mg IV.PUSH Q3H PRN PRN Reason: PAIN 3-5; IF UABLE TO TAKE PO Morphine Sulfate (Morphine Inj) 4 mg IV.PUSH Q3H PRN PRN Reason: PAIN 6-10;IF UNABLE TO TAKE PO Last Admin: 08/01/18 15:31 Dose: 4 mg Morphine Sulfate (Morphine Inj) 4 mg IV.PUSH Q3H PRN PRN Reason: BREAKTHROUGH PAIN Last Admin: 08/01/18 11:48 Dose: 4 mg Naloxone HCl (Narcan Inj) 0.4 mg IV.PUSH UNSCH PRN PRN Reason: SEE LABEL COMMENTS Ondansetron HCl (Zofran Inj) 4 mg IV.PUSH Q6H PRN PRN Reason: NAUSEA OR VOMITING Last Admin: 08/01/18 11:45 Dose: 4 mg Sennosides (Senokot) 17.2 mg PO Q12H PRN PRN Reason: Moderate Constipation Sodium Chloride (Ns Flush) 2 ml IV.FLUSH BID EDWAR Last Admin: 08/01/18 11:51 Dose: 2 ml Sodium Chloride (Ns Flush) 2 ml IV.FLUSH PRN PRN PRN Reason: FLUSH AFTER USING IV ACCESS Zolpidem Tartrate (Ambien) 5 mg PO HS PRN PRN Reason: INSOMNIA <HemluluAmbeverly - Last Filed: 08/01/18 19:08> Allergies Allergy/AdvReac Type Severity Reaction Status Date / Time No Known Allergies Allergy Verified 07/31/18 22:20 Home Medications Medication Instructions Recorded Confirmed Type Prozac 30 mg PO BID 08/01/18 08/01/18 History amlodipine 5 mg PO DAILY 08/01/18 08/01/18 History fluoxetine [Prozac] 60 mg PO DAILY 08/01/18 08/01/18 History gabapentin 300 mg PO TID 08/01/18 08/01/18 History hydroxyzine pamoate [Vistaril] 50 mg PO QID PRN 08/01/18 08/01/18 History ibuprofen 800 mg PO TID PRN 08/01/18 08/01/18 History tizanidine 4 mg PO Q6-8H PRN 08/01/18 08/01/18 History Exam Vital signs: Vital Signs 07/31/18 22:20 08/01/18 02:35 08/01/18 04:29 Temperature 97.8 F Pulse Rate 87 80 82 Respiratory Rate 18 16 16 Blood Pressure 125/74 121/75 144/75 H Pulse Oximetry 98 98 99 08/01/18 05:33 08/01/18 08:00 08/01/18 12:00 Temperature 98.6 F 98.1 F Pulse Rate 85 74 Respiratory Rate 16 16 16 Blood Pressure 153/92 H 158/89 H Pulse Oximetry 98 94 L Intake & Output 07/31/18 08/01/18 08/01/18 18:59 06:59 18:59 Intake Total 1000 / 1000 650 / 650 Balance 1000 / 1000 650 / 650 Weight 77.111 kg Intake: IV 1000 / 1000 650 / 650 NS Inj 1,000 ML @ 100 mls/hr IV 500 / 500 .CONT .Q10H EDWAR Rx#:[id number] Zosyn 3.375 GM Premix 50 ML @ 50 / 50 100 mls/hr IV.SIG Q8H EDWAR Rx#: [id number] KCl 20 mEq Premix Inj 20 meq In 100 / 100 100 ml @ 50 mls/hr IV.SIG Q2H EDWAR Rx#:[id number] NS Inj 1,000 ML @ Wide Open IV. 1000 / 1000 SIG BOLUS ONE Rx#:[id number] Other: # Voids 1 Date of Last Bowel Movement 08/01/18 - Constitutional mild distress - Routine HEENT Exam Head: Present: normocephalic - Routine Respiratory Exam Present: CTA bilaterally. Absent: accessory muscle use - Routine Cardiovascular Exam Present: S1, S2 - Routine Abdominal Exam Present: soft, normoactive bowel sounds, tenderness, guarding. Absent: distended, firm Comments: Patient reporting right upper quadrant tenderness with some generalized tenderness on palpation during exam - Routine Extremities Exam Absent: edema - Routine Skin Exam Present: dry, warm. Absent: jaundice - Routine Neurological Exam Present: alert - Routine Psychiatric Exam Present: normal affect, cooperative <Choi,Karen - Last Filed: 08/01/18 13:32> Vital signs: Vital Signs 07/31/18 22:20 08/01/18 02:35 08/01/18 04:29 Temperature 97.8 F Pulse Rate 87 80 82 Respiratory Rate 18 16 16 Blood Pressure 125/74 121/75 144/75 H Pulse Oximetry 98 98 99 08/01/18 05:33 08/01/18 08:00 08/01/18 12:00 Temperature 98.6 F 98.1 F Pulse Rate 85 74 Respiratory Rate 16 16 16 Blood Pressure 153/92 H 158/89 H Pulse Oximetry 98 94 L 08/01/18 16:00 Temperature 97.9 F Pulse Rate 74 Respiratory Rate 16 Blood Pressure 158/98 H Pulse Oximetry 95 Intake & Output 08/01/18 08/01/18 08/02/18 06:59 18:59 06:59 Intake Total 1000 / 1000 750 / 750 Balance 1000 / 1000 750 / 750 Weight 77.111 kg Intake: IV 1000 / 1000 750 / 750 NS Inj 1,000 ML @ 100 mls/hr IV 500 / 500 .CONT .Q10H EDWAR Rx#:[id number] Zosyn 3.375 GM Premix 50 ML @ 50 / 50 100 mls/hr IV.SIG Q8H EDWAR Rx#: [id number] KCl 20 mEq Premix Inj 20 meq In 200 / 200 100 ml @ 50 mls/hr IV.SIG Q2H EDWAR Rx#:[id number] NS Inj 1,000 ML @ Wide Open IV. 1000 / 1000 SIG BOLUS ONE Rx#:[id number] Other: # Voids 0 Date of Last Bowel Movement 08/01/18 <Caron Cheney - Last Filed: 08/01/18 19:08> Results - Labs CBC & Chem 7: 08/01/18 02:35 08/01/18 02:35 Labs: Laboratory Results - last 24 hr 08/01/18 08/01/18 08/01/18 02:35 02:35 02:35 WBC 10.1 RBC 3.61 L Hgb 10.0 L Hct 30.4 L MCV 84.0 MCH 27.6 MCHC 32.9 RDW 14.0 Plt Count 521 H MPV 7.8 Neut % (Auto) 60.1 Lymph % (Auto) 25.5 [place] % (Auto) 8.9 H Eos % (Auto) 4.7 H Baso % (Auto) 0.8 Neut # (Auto) 6.1 Lymph # (Auto) 2.6 [place] # (Auto) 0.9 Eos # (Auto) 0.5 H Baso # (Auto) 0.1 WBC Differential . Differential Comment Auto diff final Sodium 139 Potassium 3.0 L Chloride 104 Carbon Dioxide 25.5 Anion Gap 10 BUN 7 Creatinine 0.80 Estimated GFR 75 L Random Glucose 99 Calcium 8.8 Magnesium 1.8 Total Bilirubin 0.7 AST 84 H ALT 44 Alkaline Phosphatase 461 H Total Protein 7.8 Albumin 3.1 L Lipase 49 L Urine Color Straw Urine Clarity Hazy H Urine pH 6.0 Ur Specific [place] 1.001 L Urine Protein Negative Urine Glucose (UA) Negative Urine Ketones Negative Urine Occult Blood Small H Urine Nitrate Negative Urine Bilirubin Negative Urine Urobilinogen Less than 2 Ur Leukocyte Esterase Large H Urine RBC 2 Ur Squamous Epith Cells <1 Amorphous Sediment Rare H Urine Bacteria Rare H Hyaline Casts 1 Urine Mucus Few H Micro UA Comment Culture not ind Ur Microscopic Review Not Reportable Urine Culture Comments Culture not ind - Imaging Impressions Gallbladder Ultrasound 08/01/18 00:00 CONCLUSION: 1. Abnormal common duct and gallbladder. MRCP would be of benefit. Abdomen/Pelvis CT 08/01/18 02:02 CONCLUSION: 1. CT findings of acute cholecystitis without rupture. There is also apparent biliary obstruction at the level of the distal duct of unclear etiology. I don' t clearly see a mass or stone. 2. 2.2 cm mass of the right kidney, debris-filled cyst versus partly solid mass. Nonemergent outpatient abdomen MRI with and without contrast recommended. 3. Benign-appearing right ovarian cyst. 4. Sigmoid colon diverticulosis without diverticulitis. <Karen Choi - Last Filed: 08/01/18 13:32> - Labs CBC & Chem 7: 08/01/18 02:35 08/01/18 02:35 Labs: Laboratory Results - last 24 hr 08/01/18 08/01/18 08/01/18 02:35 02:35 02:35 WBC 10.1 RBC 3.61 L Hgb 10.0 L Hct 30.4 L MCV 84.0 MCH 27.6 MCHC 32.9 RDW 14.0 Plt Count 521 H MPV 7.8 Neut % (Auto) 60.1 Lymph % (Auto) 25.5 [place] % (Auto) 8.9 H Eos % (Auto) 4.7 H Baso % (Auto) 0.8 Neut # (Auto) 6.1 Lymph # (Auto) 2.6 [place] # (Auto) 0.9 Eos # (Auto) 0.5 H Baso # (Auto) 0.1 WBC Differential . Differential Comment Auto diff final Sodium 139 Potassium 3.0 L Chloride 104 Carbon Dioxide 25.5 Anion Gap 10 BUN 7 Creatinine 0.80 Estimated GFR 75 L Random Glucose 99 Calcium 8.8 Magnesium 1.8 Total Bilirubin 0.7 AST 84 H ALT 44 Alkaline Phosphatase 461 H Total Protein 7.8 Albumin 3.1 L Lipase 49 L Urine Color Straw Urine Clarity Hazy H Urine pH 6.0 Ur Specific [place] 1.001 L Urine Protein Negative Urine Glucose (UA) Negative Urine Ketones Negative Urine Occult Blood Small H Urine Nitrate Negative Urine Bilirubin Negative Urine Urobilinogen Less than 2 Ur Leukocyte Esterase Large H Urine RBC 2 Ur Squamous Epith Cells <1 Amorphous Sediment Rare H Urine Bacteria Rare H Hyaline Casts 1 Urine Mucus Few H Micro UA Comment Culture not ind Ur Microscopic Review Not Reportable Urine Culture Comments Culture not ind - Imaging Impressions Gallbladder Ultrasound 08/01/18 00:00 CONCLUSION: 1. Abnormal common duct and gallbladder. MRCP would be of benefit. Abdomen/Pelvis CT 08/01/18 02:02 CONCLUSION: 1. CT findings of acute cholecystitis without rupture. There is also apparent biliary obstruction at the level of the distal duct of unclear etiology. I don' t clearly see a mass or stone. 2. 2.2 cm mass of the right kidney, debris-filled cyst versus partly solid mass. Nonemergent outpatient abdomen MRI with and without contrast recommended. 3. Benign-appearing right ovarian cyst. 4. Sigmoid colon diverticulosis without diverticulitis. Cholangiopancreatography MRI 08/01/18 11:27 CONCLUSION: 1. Sludge in the gallbladder. 2. Normal common duct without evidence for common duct stones. <Caron Cheney - Last Filed: 08/01/18 19:08> Assessment and Plan (1) Cholecystitis Status: Acute Code(s): K81.9 - Cholecystitis, unspecified - Plan This patient is a 53-year-old female with past medical history significant for hypertension. Surgical history includes hysterectomy. This patient presented to the emergency room at [facility] with report of 4-day onset of right sided mid to upper abdominal pain with nausea and vomiting. Patient describes the pain as sharp and states that is is constant. There are no reported alleviating or aggravating factors. Patient rates pain at 9 out of 10 at this time. She denies any radiation of pain and reports associated nausea and vomiting with chills and no fever. Patient denies ever having had EGD or colonoscopy in the past. She denies any known family history for gastrointestinal disorders. Patient denies any use of alcohol products but states that she smokes 2 cigarettes daily. Patient denies diarrhea but reports occasional constipation for which she takes Ex-Lax. She reports soft brown stools daily without any noted bleeding. On admission to ER CT showed acute cholecystitis without rupture and questionable biliary obstruction. Gallbladder ultrasound reveals abnormal gallbladder and common bile duct. MRCP ordered. Cholecystitis 1 cm common bile duct Patient presents with report of 4-5-day onset of right upper quadrant pain with nausea and vomiting. 08/01/2018 CT abdomen and pelvis revealed the following-- 1. CT findings of acute cholecystitis without rupture. There is also apparent biliary obstruction at the level of the distal duct of unclear etiology. I don' t clearly see a mass or stone. 2. 2.2 cm mass of the right kidney, debris-filled cyst versus partly solid mass. Nonemergent outpatient abdomen MRI with and without contrast recommended. 3. Benign-appearing right ovarian cyst. 4. Sigmoid colon diverticulosis without diverticulitis. 08/01/2018 gallbladder ultrasound revealed the following --Abnormal common duct and gallbladder. MRCP would be of benefit. WBC 10.1 hemoglobin 10.0 hematocrit 30.4 platelet count 521 total bilirubin 0.7 AST 84 ALT 44 alk phos 461 lipase 49 Plan -N.p.o. -MRCP pending -General surgery following -Antiemetics and analgesics as per attending -IV hydration -IV Zosyn -Supportive care -Further recommendations to follow This patient has been seen by myself and Dr. Cheney and this note is written on his behalf - Attending Attestation Dr. Cheney <Karen Choi - Last Filed: 08/01/18 13:32> (1) Cholecystitis Status: Acute Code(s): K81.9 - Cholecystitis, unspecified - Plan Patient was seen and examined, agree with above note, I discussed the case with the surgeon and the patient had MRCP which was negative for stone, she will need laparoscopic cholecystectomy and we will follow-up as needed, no need for ERCP at this point <Caron Cheney - Last Filed: 08/01/18 19:08>
--- NOTE | 2018-08-01 14:08 | MR ---
EXAM DATE: 08/01/2018 1:50 PM EST AGE/SEX: 53 years / Female INDICATIONS: . Upper right sided abdomen pain. CLINICAL DATA: This is the patient's initial encounter. Patient reports that signs and symptoms have been present for 2 days and indicates a pain score of 6/10. MEDICAL/SURGICAL HISTORY: Hypertension. None. COMPARISON: [facility] – [place], CT ABDOMEN & PELVIS W CONTRAST, 08/01/2018. . TECHNIQUE: Multiplanar, multisequence images of the abdomen were obtained without contrast including dedicated cholangiographic images. FINDINGS: Minimal consolidative changes in the left lung base Liver: The liver is homogeneous and normal in signal intensity with no focal defects. Intrahepatic Bile Ducts: There is no intrahepatic biliary ductal dilatation. Common Bile Duct: The common bile duct is normal in caliber No filling defects or obstructing lesio ns are identified. Gallbladder: The gallbladder is normal with no evidence for cholelithiasis, gallbladder wall thicken ing, or pericholecystic fluid. Pancreas: The pancreas appears normal in signal with no focal parenchymal abnormalities. The pancrea tic duct is normal in caliber with no filling defects, or obstructing lesions identified. Right kidney: Small 1 cm cystic area right kidney CONCLUSION: 1. Sludge in the gallbladder. 2. Normal common duct without evidence for common duct stones. Electronically signed by: Gianfranco Mahoney MD 08/01/2018 2:06 PM EST
[2018-08-02] MEDS: Piperacil/Tazo 3.375 GM Premix 50 ML IV.SIG SCH ×3 (02:00→18:27)
[2018-08-02] MEDS: Morphine Inj 4 MG/ML Vial IV.PUSH PRN ×7 (02:56→22:27)
[2018-08-02 07:15] LABS: Baso # (Auto) 0.1 th/mm3 (0.0-0.2); Baso % (Auto) 0.6 % (0.0-2.0); Eos # (Auto) 0.5 th/mm3 (0.0-0.4); Eos % (Auto) 4.4 % (0.0-4.0); Hemoglobin 9.7 gm/dL (11.6-15.3); Lymph # (Auto) 2.2 th/mm3 (1.0-4.8); Lymph % (Auto) 20.4 % (9.0-44.0); Mean Corpuscular HGB Conc 32.5 % (32.0-36.0); Mean Corpuscular Hemoglobin 27.4 pg (27.0-34.0); Mean Corpuscular Volume 84.5 fL (80.0-100.0); Mean Platelet Volume 7.9 fL (7.0-11.0); Mono % (Auto) 8.7 % (0.0-8.0); Neut # (Auto) 7.2 th/mm3 (1.8-7.7); Neut % (Auto) 65.9 % (16.0-70.0); Platelet Count 495 th/mm3 (150-450); Red Blood Count 3.55 mil/mm3 (4.00-5.30); Red Cell Distribution Width 14.1 % (11.6-17.2)
[2018-08-02 07:33] LABS: Albumin 2.7 g/dL (3.4-5.0); Anion Gap 11 meq/L (5-15); Aspartate Aminotransferase 54 U/L (15-37); Blood Urea Nitrogen 8 mg/dL (7-18); Calcium 8.4 mg/dL (8.5-10.1); Carbon Dioxide 25.4 meq/L (21.0-32.0); Chloride 104 meq/L (98-107); Glomerular Filtration Rate Greater Than 89 mL/min (>89); Glucose,Random 92 mg/dL (74-106); Potassium 3.7 meq/L (3.5-5.1); Sodium 140 meq/L (136-145)
[2018-08-02 07:34] LABS: Alanine Aminotransferase 53 U/L (10-53)
[2018-08-02 07:36] LABS: Alkaline Phosphatase 441 U/L (45-117); Total Protein 7.2 g/dL (6.4-8.2)
[2018-08-02] MEDS ORDERED: Dextrose 50% in Water 50 ML Vial IV.PUSH PRN (08:53)
[2018-08-02] MEDS: Sodium Chloride 0.9% 2 ML Flush BID IV.FLUSH SCH ×2 (09:30→20:56)
--- NOTE | 2018-08-02 13:15 | P.PN ---
Subjective Interval history: Follow-up cholecystitis. Pain currently controlled. For surgery later today Physical Exam Vital signs: Vital Signs 08/01/18 16:00 08/01/18 20:00 08/01/18 23:35 Temperature 97.9 F 97.4 F L 98.7 F Pulse Rate 74 69 76 Respiratory Rate 18 18 Blood Pressure 158/98 H 125/62 138/87 Pulse Oximetry 95 96 95 08/02/18 03:26 08/02/18 04:00 08/02/18 06:45 Temperature 99.1 F Pulse Rate 79 Respiratory Rate 18 16 Blood Pressure 150/81 H Pulse Oximetry 97 08/02/18 08:00 Temperature 97.8 F Pulse Rate 74 Respiratory Rate 17 Blood Pressure 149/85 H Pulse Oximetry 97 Intake & Output 08/01/18 08/02/18 08/02/18 18:59 06:59 18:59 Intake Total 750 / 750 1010 / 1010 550 / 550 Balance 750 / 750 1010 / 1010 550 / 550 Intake: IV 750 / 750 1010 / 1010 550 / 550 KCl Inj 20 MEQ In LR 1000 mL 910 / 910 500 / 500 Inj 1,000 ML @ 100 mls/hr IV. CONT .Q10H6M EDWAR Rx#:[id number] NS Inj 1,000 ML @ 100 mls/hr IV 500 / 500 .CONT .Q10H EDWAR Rx#:[id number] Zosyn 3.375 GM Premix 50 ML @ 50 / 50 100 / 100 50 / 50 100 mls/hr IV.SIG Q8H EDWAR Rx#: [id number] KCl 20 mEq Premix Inj 20 meq In 200 / 200 100 ml @ 50 mls/hr IV.SIG Q2H EDWAR Rx#:[id number] Other: # Voids 0 Date of Last Bowel Movement 08/01/18 Narrative: GENERAL: Alert and awake female resting in bed in no acute distress. SKIN: Warm and dry. CARDIOVASCULAR: Regular rate and rhythm. RESPIRATORY: No accessory muscle use. Clear to auscultation. Breath sounds equal bilaterally. GASTROINTESTINAL: Abdomen soft, mildly distended. RUQ tenderness with palpation. Well healed lower midline incision. MUSCULOSKELETAL: Extremities without clubbing, cyanosis, or edema. No obvious deformities. NEUROLOGICAL: Awake and alert. No obvious cranial nerve deficits. Motor grossly within normal limits. Five out of 5 muscle strength in the arms and legs. Normal speech. PSYCHIATRIC: Appropriate mood and affect; insight and judgment normal. Results - Labs CBC & Chem 7: 08/02/18 06:00 08/02/18 06:00 Laboratory Results - last 24 hr 08/02/18 08/02/18 08/02/18 06:00 06:00 10:06 WBC 11.0 RBC 3.55 L Hgb 9.7 L Hct 30.0 L MCV 84.5 MCH 27.4 MCHC 32.5 RDW 14.1 Plt Count 495 H MPV 7.9 Neut % (Auto) 65.9 Lymph % (Auto) 20.4 [place] % (Auto) 8.7 H Eos % (Auto) 4.4 H Baso % (Auto) 0.6 Neut # (Auto) 7.2 Lymph # (Auto) 2.2 [place] # (Auto) 1.0 H Eos # (Auto) 0.5 H Baso # (Auto) 0.1 WBC Differential . Differential Comment Auto diff final Sodium 140 Potassium 3.7 Chloride 104 Carbon Dioxide 25.4 Anion Gap 11 BUN 8 Creatinine 0.53 Estimated GFR Greater than 89 POC Glucose 104 Random Glucose 92 Calcium 8.4 L Total Bilirubin 0.7 AST 54 H ALT 53 Alkaline Phosphatase 441 H Total Protein 7.2 D Albumin 2.7 L - Imaging Impressions Cholangiopancreatography MRI 08/01/18 11:27 CONCLUSION: 1. Sludge in the gallbladder. 2. Normal common duct without evidence for common duct stones. Assessment and Plan - Plan This is a 54-year-old female with a history of hypertension. She presents with abdominal pain, nausea, vomiting, fever and chills. CT shows acute cholecystitis and dilated common bile duct Acute cholecystitis. N.p.o., IV hydration and pain management with IV morphine general surgery for laparoscopic cholecystectomy Dilated common bile duct. Normal CBD without stones per MRCP 2.2 cm mass of the right kidney. Outpatient MRI Normocytic normochromic anemia. No gross bleeding. Will monitor Hypokalemia potassium 3 magnesium 1.8. Replaced. DVT prophylaxis with SCD Restart home medications when diet started Discharge Planning: Per
--- NOTE | 2018-08-02 15:28 | ECG ---
Date Performed: 08/01/2018 Time Performed: 08:53:42 PTAGE: 53 years EKG: Sinus rhythm NONSPECIFIC T-WAVE ABNORMALITY BORDERLINE ECG PREVIOUS TRACING :11/18/15 @23.008 Compared to previous tracing, he Nonspecific T-wave changes ar e new but minor DOCTOR: Héctor Tellez Interpretating Date/Time 08/02/2018 15:27:57
[2018-08-03] MEDS: Piperacil/Tazo 3.375 GM Premix 50 ML IV.SIG SCH ×3 (01:09→18:08)
[2018-08-03] MEDS: Morphine Inj 4 MG/ML Vial IV.PUSH PRN ×5 (01:41→20:52)
[2018-08-03] MEDS ORDERED: HYDROmorphone PF Inj 2 MG/ML Vial IV.PUSH ONE (02:26)
[2018-08-03 08:32] LABS: Baso # (Auto) 0.1 th/mm3 (0.0-0.2); Baso % (Auto) 0.6 % (0.0-2.0); Eos # (Auto) 0.8 th/mm3 (0.0-0.4); Eos % (Auto) 6.6 % (0.0-4.0); Hemoglobin 10.8 gm/dL (11.6-15.3); Lymph # (Auto) 1.8 th/mm3 (1.0-4.8); Lymph % (Auto) 14.8 % (9.0-44.0); Mean Corpuscular HGB Conc 32.7 % (32.0-36.0); Mean Corpuscular Hemoglobin 27.4 pg (27.0-34.0); Mean Corpuscular Volume 83.8 fL (80.0-100.0); Mean Platelet Volume 7.8 fL (7.0-11.0); Mono # (Auto) 0.9 th/mm3 (0.0-0.9); Mono % (Auto) 7.4 % (0.0-8.0); Neut # (Auto) 8.6 th/mm3 (1.8-7.7); Neut % (Auto) 70.6 % (16.0-70.0); Platelet Count 523 th/mm3 (150-450); Red Blood Count 3.94 mil/mm3 (4.00-5.30); Red Cell Distribution Width 14.3 % (11.6-17.2); White Blood Count 12.2 th/mm3 (4.0-11.0)
[2018-08-03] MEDS: Sodium Chloride 0.9% 2 ML Flush BID IV.FLUSH SCH ×2 (08:33→20:57)
[2018-08-03 08:48] LABS: Anion Gap 8 meq/L (5-15); Aspartate Aminotransferase 69 U/L (15-37); Blood Urea Nitrogen 4 mg/dL (7-18); Calcium 8.7 mg/dL (8.5-10.1); Carbon Dioxide 27.8 meq/L (21.0-32.0); Chloride 100 meq/L (98-107); Glomerular Filtration Rate Greater Than 89 mL/min (>89); Glucose,Random 103 mg/dL (74-106); Magnesium 1.6 mg/dL (1.5-2.5); Potassium 3.3 meq/L (3.5-5.1); Sodium 136 meq/L (136-145)
[2018-08-03 08:49] LABS: Alanine Aminotransferase 68 U/L (10-53)
[2018-08-03 08:51] LABS: Alkaline Phosphatase 550 U/L (45-117); Total Protein 8.2 g/dL (6.4-8.2)
--- NOTE | 2018-08-03 09:52 | P.PN ---
Subjective Interval history: Follow-up acute cholecystitis. Requesting more pain medicine. Patient also has developed leukocytosis we will add IV Flagyl hoping to undergo cholecystectomy later today. It has been postponed secondary to trauma patients Physical Exam Vital signs: Vital Signs 08/02/18 12:00 08/02/18 16:00 08/02/18 19:40 Temperature 98.0 F 98.0 F Pulse Rate 72 75 Respiratory Rate 17 16 16 Blood Pressure 167/93 H 157/90 H Pulse Oximetry 97 98 08/02/18 19:49 08/02/18 23:45 08/03/18 02:13 Temperature 98.4 F Pulse Rate 69 Respiratory Rate 18 15 22 Blood Pressure 148/89 H Pulse Oximetry 99 08/03/18 03:19 08/03/18 03:42 08/03/18 04:00 Temperature 98.7 F Pulse Rate 89 Respiratory Rate 18 17 22 Blood Pressure 142/91 H Pulse Oximetry 96 08/03/18 07:51 08/03/18 08:41 Temperature 97.3 F L Pulse Rate 80 Respiratory Rate 18 16 Blood Pressure 152/91 H Pulse Oximetry 100 Intake & Output 08/02/18 08/03/18 08/03/18 18:59 06:59 18:59 Intake Total 1600 / 1600 1060 / 1060 Balance 1600 / 1600 1060 / 1060 Intake: IV 1600 / 1600 1060 / 1060 KCl Inj 20 MEQ In LR 1000 mL 1500 / 1500 1010 / 1010 Inj 1,000 ML @ 100 mls/hr IV. CONT .Q10H6M [facility] Rx#:[id number] Zosyn 3.375 GM Premix 50 ML @ 100 / 100 50 / 50 100 mls/hr IV.SIG Q8H [facility] Rx#: [id number] Other: Date of Last Bowel Movement 08/01/18 Narrative: GENERAL: Alert and awake female resting in bed in no acute distress. SKIN: Warm and dry. CARDIOVASCULAR: Regular rate and rhythm. RESPIRATORY: No accessory muscle use. Clear to auscultation. Breath sounds equal bilaterally. GASTROINTESTINAL: Abdomen soft, mildly distended. RUQ tenderness with palpation. Well healed lower midline incision. MUSCULOSKELETAL: Extremities without clubbing, cyanosis, or edema. No obvious deformities. NEUROLOGICAL: Awake and alert. No obvious cranial nerve deficits. Motor grossly within normal limits. Five out of 5 muscle strength in the arms and legs. Normal speech. Results - Labs CBC & Chem 7: 08/03/18 07:30 08/03/18 07:50 Laboratory Results - last 24 hr 08/02/18 08/02/18 08/02/18 10:06 10:46 13:26 WBC RBC Hgb Hct MCV MCH MCHC RDW Plt Count MPV Neut % (Auto) Lymph % (Auto) [place] % (Auto) Eos % (Auto) Baso % (Auto) Neut # (Auto) Lymph # (Auto) [place] # (Auto) Eos # (Auto) Baso # (Auto) WBC Differential Differential Comment Sodium Potassium Chloride Carbon Dioxide Anion Gap BUN Creatinine Estimated GFR POC Glucose 104 100 Random Glucose Calcium Magnesium Total Bilirubin AST ALT Alkaline Phosphatase Total Protein Albumin Nasal Screen MRSA (PCR) Negative Staph aureus (PCR) Positive 08/02/18 08/03/18 08/03/18 18:12 07:30 07:50 WBC 12.2 H RBC 3.94 L Hgb 10.8 L Hct 33.0 L MCV 83.8 MCH 27.4 MCHC 32.7 RDW 14.3 Plt Count 523 H MPV 7.8 Neut % (Auto) 70.6 H Lymph % (Auto) 14.8 [place] % (Auto) 7.4 Eos % (Auto) 6.6 H Baso % (Auto) 0.6 Neut # (Auto) 8.6 H Lymph # (Auto) 1.8 [place] # (Auto) 0.9 Eos # (Auto) 0.8 H Baso # (Auto) 0.1 WBC Differential . Differential Comment Auto diff final Sodium 136 Potassium 3.3 L Chloride 100 Carbon Dioxide 27.8 Anion Gap 8 BUN 4 L Creatinine 0.53 Estimated GFR Greater than 89 POC Glucose 150 H Random Glucose 103 Calcium 8.7 Magnesium 1.6 Total Bilirubin 0.9 AST 69 H ALT 68 H Alkaline Phosphatase 550 H Total Protein 8.2 D Albumin 3.0 L Nasal Screen MRSA (PCR) Staph aureus (PCR) - Imaging ITS Impressions Gallbladder Ultrasound 08/01/18 00:00 CONCLUSION: 1. Abnormal common duct and gallbladder. MRCP would be of benefit. Abdomen/Pelvis CT 08/01/18 02:02 CONCLUSION: 1. CT findings of acute cholecystitis without rupture. There is also apparent biliary obstruction at the level of the distal duct of unclear etiology. I don' t clearly see a mass or stone. 2. 2.2 cm mass of the right kidney, debris-filled cyst versus partly solid mass. Nonemergent outpatient abdomen MRI with and without contrast recommended. 3. Benign-appearing right ovarian cyst. 4. Sigmoid colon diverticulosis without diverticulitis. Cholangiopancreatography MRI 08/01/18 11:27 CONCLUSION: 1. Sludge in the gallbladder. 2. Normal common duct without evidence for common duct stones. Assessment and Plan - Plan This is a 54-year-old female with a history of hypertension. She presents with abdominal pain, nausea, vomiting, fever and chills. CT shows acute cholecystitis and dilated common bile duct Acute cholecystitis. N.p.o., IV hydration and pain management with IV morphine general surgery for laparoscopic cholecystectomy. Meets sepsis criteria(WC and RR). Will add Flagyl to Zosyn Dilated common bile duct. Normal CBD without stones per MRCP 2.2 cm mass of the right kidney. Outpatient MRI Normocytic normochromic anemia. No gross bleeding. Will monitor Hypokalemia potassium 3 magnesium 1.8. Replaced. DVT prophylaxis with SCD Restart home medications when diet started Discharge Planning: Per GS
[2018-08-03] MEDS: HYDROmorphone PF Inj 1 MG/ML Ampul IV.PUSH PRN (10:01)
[2018-08-03] MEDS ORDERED: Famotidine PF Inj 20 MG/2 ML Vial ONE (11:30)
[2018-08-03] MEDS ORDERED: Bupivacaine/Epinephrine Inj 0.25% 50 ML Vial ONE (12:00)
--- NOTE | 2018-08-03 14:03 | P.OP ---
- Preoperative Diagnosis (1) Cholecystitis - Postoperative Diagnosis (1) Cholecystitis Procedure: lap sammy Anesthesia: GETA Surgeon: Fredrick Batres MD Estimated blood loss (mL): 30 Pathology: other Operation and Findings: very inflamed gallbladder with pus
[2018-08-03] MEDS ORDERED: *HYDROmorphone PF Inj 1 MG/ML Ampul PERIprocedural Use ONLY ONE ×3 (14:22→15:16)
[2018-08-03] MEDS ORDERED: Morphine Inj 4 MG/ML Vial ONE (15:25)
[2018-08-03] MEDS ORDERED: Sugammadex Inj 200 MG/2 ML Vial IV.PUSH ONE (15:25)
[2018-08-03] MEDS ORDERED: fentaNYL Citrate Inj 100 MCG/2 ML Ampul ONE (15:25)
--- NOTE | 2018-08-03 19:06 | MP ---
cc: Fredrick Batres MD DATE OF OPERATION: 08/03/2018 PREOPERATIVE DIAGNOSIS: Acute cholecystitis. POSTOPERATIVE DIAGNOSIS: Pain, hydrops. PROCEDURE PERFORMED: Laparoscopic cholecystectomy. SURGEON: Fredrick Batres MD PILE DRIVING SUPERVISOR: None. ANESTHESIA: GETA. IV FLUIDS: See anesthesia sheet. ESTIMATED BLOOD LOSS: 30 mL. DRAINS: A 10-Kiswahili flat NUPUR drain placed in right upper quadrant. SPECIMENS: Gallbladder. FINDINGS: A very thickened acutely inflamed gallbladder with omental adhesion. Purulent pus contained within the gallbladder on aspiration. Very edematous thickened gallbladder. WOUND CLASSIFICATION: Contaminated. INDICATIONS: The patient presented with acute onset of right upper quadrant pain x 1 week. MRCP ruled out any stones in the common bile duct and a decision was made for laparoscopic cholecystectomy. DETAILS OF PROCEDURE: The patient was taken to the operating suite, placed in supine position. She was prepped and draped in the usual sterile fashion after induction of general endotracheal anesthesia. Brief timeout to ensure correct patient, procedure, surgical site, and we all were in agreement. Attention was first directed to the umbilicus where a stab matthew incision was made after injection of local anesthetic. The Visiport Optiview 5 mm was done to enter the abdomen safely. On cursory inspection, no evidence of injury. Abdomen was slightly inflated to 250 pneumoperitoneum. Three other ports were placed, including a 12 mm epigastric port, followed by two right 5 mm subcostal ports. The patient was placed in reverse Trendelenburg and airplaned to the left. The gallbladder was identified, noted with multiple adhesions to the gallbladder; gallbladder very thickened, inflamed and edematous. The gallbladder was unable to be grasped. Therefore, an Endoneedle was used to decompress the gallbladder with 130 mL aspirated. Aspiration was a slight bilious with very thick purulent and clearish yellow fluid. The gallbladder was then grasped and retracted cephalad. The adhesions were taken off the gallbladder with hook electric Bovie cautery, suction irrigation. The gallbladder was dissected down to the cystic duct and cystic artery. Cystic artery difficult to visualize with difficulty with continued dissection; therefore, dome-down approach was embarked. Hook electric Bovie cautery down to do a dome-down approach technique. This was done in order to mobilize the gallbladder off the gallbladder fossa. A Prolene Endoloop was obtained, given the thickness and unable to put clips, an Endoloop was placed distal and one slightly proximal. The gallbladder was transected and placed in an EndoCatch bag and removed from the abdomen. Abdomen irrigated until it was clear. Suctioning done as well. Hemostasis was obtained using electric Bovie cautery. Arixtra powder was placed in the right upper quadrant for surgical hemostasis, 3 grams, and a 10 flat NUPUR drain was placed and pulled through the right lateral subcostal incision. This was secured with a 2-0 nylon. The abdomen was then reinspected. No evidence of biliary leaking. She had good hemostasis. Ports were removed and the epigastric port was closed with a [id number] 0 Vicryl and 4-0 Monocryl used with all subcuticular sutures and a sterile dressing including Mastisol and Steri-Strips placed. The patient tolerated the procedure well. All lap and instrument counts were correct. No complications. The patient was extubated and taken stable to PACU. MD SARA Stark/kimberly , 06:27 PM , 06:38 PM
[2018-08-04] MEDS: Morphine Inj 4 MG/ML Vial IV.PUSH PRN ×5 (00:25→21:38)
[2018-08-04] MEDS: Piperacil/Tazo 3.375 GM Premix 50 ML IV.SIG SCH ×3 (01:43→17:42)
[2018-08-04] MEDS: HYDROmorphone PF Inj 1 MG/ML Ampul IV.PUSH PRN ×2 (04:27→13:12)
[2018-08-04 07:22] LABS: Baso % (Auto) 0.3 % (0.0-2.0); Hematocrit 27.5 % (35.0-46.0); Hemoglobin 9.1 gm/dL (11.6-15.3); Lymph # (Auto) 1.6 th/mm3 (1.0-4.8); Lymph % (Auto) 13.1 % (9.0-44.0); Mean Corpuscular HGB Conc 33.3 % (32.0-36.0); Mean Corpuscular Hemoglobin 27.8 pg (27.0-34.0); Mean Corpuscular Volume 83.6 fL (80.0-100.0); Mean Platelet Volume 7.9 fL (7.0-11.0); Mono % (Auto) 7.8 % (0.0-8.0); Neut # (Auto) 9.7 th/mm3 (1.8-7.7); Neut % (Auto) 78.8 % (16.0-70.0); Platelet Count 505 th/mm3 (150-450); Red Blood Count 3.29 mil/mm3 (4.00-5.30); Red Cell Distribution Width 14.3 % (11.6-17.2); White Blood Count 12.3 th/mm3 (4.0-11.0)
--- NOTE | 2018-08-04 07:58 | P.PNGS ---
Subjective Interval history: Resting in bed C/o RIGHT shoulder pain Has been OOB and walking the hallways Tired; did not sleep well last night Physical Exam Vital signs: Vital Signs 08/03/18 08:41 08/03/18 14:13 08/03/18 14:30 Temperature 97.9 F Pulse Rate 83 81 Respiratory Rate 16 15 15 Blood Pressure 135/82 135/81 Pulse Oximetry 96 97 08/03/18 14:45 08/03/18 15:00 08/03/18 15:12 Temperature Pulse Rate 80 82 Respiratory Rate 15 15 Blood Pressure 148/86 H 151/93 H Pulse Oximetry 97 96 96 08/03/18 15:15 08/03/18 15:30 08/03/18 16:00 Temperature 98.0 F 97.9 F Pulse Rate 81 79 86 Respiratory Rate 15 16 18 Blood Pressure 153/94 H 147/93 H 134/79 Pulse Oximetry 97 96 95 08/03/18 20:00 08/04/18 00:00 08/04/18 04:00 Temperature 97.8 F 97.2 F L 98 F Pulse Rate 82 80 90 Respiratory Rate 20 18 17 Blood Pressure 141/76 H 162/85 H 174/112 H Pulse Oximetry 96 94 L 95 Intake & Output 08/03/18 08/04/18 08/04/18 18:59 06:59 18:59 Intake Total 3710 / 3710 2150 / 2150 Output Total 30 / 30 60 / 60 Balance 3680 / 3680 2090 / 2090 Weight 72 kg Intake: IV 2210 / 2210 950 / 950 KCl Inj 20 MEQ In LR 1000 mL 2009 800 / 800 Inj 1,000 ML @ 100 mls/hr IV. CONT .Q10H6M [facility] Rx#:[id number] Zosyn 3.375 GM Premix 50 ML @ 100 / 100 50 / 50 100 mls/hr IV.SIG Q8H [facility] Rx#: [id number] Flagyl 500 MG Inj 100 ML @ 100 100 / 100 100 / 100 mls/hr IV.SIG Q6H [facility] Rx#: [id number] Oral 1200 / 1200 Anesthesia Amount 1500 / 1500 Output: Estimated Blood Loss 30 / 30 Wound Drainage 60 / 60 # 1 Right Upper Abdomen NUPUR 60 / 60 Drain Other: # Voids 1 10 Date of Last Bowel Movement 08/01/18 08/01/18 Narrative: Alert and awake Abd: mildly distended; pain around umbilicus; incision sites c/d/i; NUPUR to bulb suction with bloody drainage Results - Labs 08/04/18 06:14 08/03/18 07:50 Laboratory Results - last 24 hr 08/03/18 08/03/18 08/03/18 07:30 07:50 10:26 WBC 12.2 H RBC 3.94 L Hgb 10.8 L Hct 33.0 L MCV 83.8 MCH 27.4 MCHC 32.7 RDW 14.3 Plt Count 523 H MPV 7.8 Neut % (Auto) 70.6 H Lymph % (Auto) 14.8 [place] % (Auto) 7.4 Eos % (Auto) 6.6 H Baso % (Auto) 0.6 Neut # (Auto) 8.6 H Lymph # (Auto) 1.8 [place] # (Auto) 0.9 Eos # (Auto) 0.8 H Baso # (Auto) 0.1 WBC Differential . Differential Comment Auto diff final Sodium 136 Potassium 3.3 L Chloride 100 Carbon Dioxide 27.8 Anion Gap 8 BUN 4 L Creatinine 0.53 Estimated GFR Greater than 89 POC Glucose 120 H Random Glucose 103 Calcium 8.7 Magnesium 1.6 Total Bilirubin 0.9 AST 69 H ALT 68 H Alkaline Phosphatase 550 H Total Protein 8.2 D Albumin 3.0 L 08/04/18 06:14 WBC 12.3 H RBC 3.29 L Hgb 9.1 L Hct 27.5 L MCV 83.6 MCH 27.8 MCHC 33.3 RDW 14.3 Plt Count 505 H MPV 7.9 Neut % (Auto) 78.8 H Lymph % (Auto) 13.1 [place] % (Auto) 7.8 Eos % (Auto) 0.0 Baso % (Auto) 0.3 Neut # (Auto) 9.7 H Lymph # (Auto) 1.6 [place] # (Auto) 1.0 H Eos # (Auto) 0.0 Baso # (Auto) 0.0 WBC Differential . Differential Comment Auto diff final Sodium Potassium Chloride Carbon Dioxide Anion Gap BUN Creatinine Estimated GFR POC Glucose Random Glucose Calcium Magnesium Total Bilirubin AST ALT Alkaline Phosphatase Total Protein Albumin - Imaging Imaging: ITS Impressions Gallbladder Ultrasound 08/01/18 00:00 CONCLUSION: 1. Abnormal common duct and gallbladder. MRCP would be of benefit. Abdomen/Pelvis CT 08/01/18 02:02 CONCLUSION: 1. CT findings of acute cholecystitis without rupture. There is also apparent biliary obstruction at the level of the distal duct of unclear etiology. I don' t clearly see a mass or stone. 2. 2.2 cm mass of the right kidney, debris-filled cyst versus partly solid mass. Nonemergent outpatient abdomen MRI with and without contrast recommended. 3. Benign-appearing right ovarian cyst. 4. Sigmoid colon diverticulosis without diverticulitis. Cholangiopancreatography MRI 08/01/18 11:27 CONCLUSION: 1. Sludge in the gallbladder. 2. Normal common duct without evidence for common duct stones. Assessment and Plan - Assessment (1) Cholecystitis Code(s): K81.9 - Cholecystitis, unspecified Status: Acute Plan: 53 year old female with RUQ abdominal pain -POD1 lap sammy; pus filled gallbladder -Continue clear liquids until bowel function returns -OOB and mobilize -Continue routine NUPUR care -Adjusted pain medications
[2018-08-04 08:03] LABS: Anion Gap 10 meq/L (5-15); Blood Urea Nitrogen 7 mg/dL (7-18); Calcium 8.1 mg/dL (8.5-10.1); Carbon Dioxide 28.1 meq/L (21.0-32.0); Chloride 102 meq/L (98-107); Glomerular Filtration Rate Greater Than 89 mL/min (>89); Glucose,Random 122 mg/dL (74-106); Magnesium 1.7 mg/dL (1.5-2.5); Potassium 3.4 meq/L (3.5-5.1); Sodium 140 meq/L (136-145)
[2018-08-04] MEDS: Sodium Chloride 0.9% 2 ML Flush BID IV.FLUSH SCH ×2 (09:13→20:37)
--- NOTE | 2018-08-04 16:19 | P.PN ---
Subjective Interval history: The patient is in bed she appears sleepy. Says she did not sleep well last night. Says she still has abdominal pain however is fairly controlled by pain medications at this time. No nausea or vomiting. No fever or chills overnight. Physical Exam Vital signs: Vital Signs 08/03/18 20:00 08/04/18 00:00 08/04/18 04:00 Temperature 97.8 F 97.2 F L 98 F Pulse Rate 82 80 90 Respiratory Rate 20 18 17 Blood Pressure 141/76 H 162/85 H 174/112 H Pulse Oximetry 96 94 L 95 08/04/18 08:00 08/04/18 12:00 Temperature 97.9 F 97.5 F L Pulse Rate 81 75 Respiratory Rate 18 17 Blood Pressure 117/93 H 128/81 Pulse Oximetry 92 L 96 Intake & Output 08/03/18 08/04/18 08/04/18 18:59 06:59 18:59 Intake Total 3710 / 3710 2150 / 2150 50 / 50 Output Total 30 / 30 60 / 60 Balance 3680 / 3680 2090 / 2090 50 / 50 Weight 72 kg Intake: IV 2210 / 2210 950 / 950 50 / 50 KCl Inj 20 MEQ In LR 1000 mL 2009 800 / 800 Inj 1,000 ML @ 100 mls/hr IV. CONT .Q10H6M [facility] Rx#:[id number] Zosyn 3.375 GM Premix 50 ML @ 100 / 100 50 / 50 50 / 50 100 mls/hr IV.SIG Q8H [facility] Rx#: [id number] Flagyl 500 MG Inj 100 ML @ 100 100 / 100 100 / 100 mls/hr IV.SIG Q6H [facility] Rx#: [id number] Oral 1200 / 1200 Anesthesia Amount 1500 / 1500 Output: Estimated Blood Loss 30 / 30 Wound Drainage 60 / 60 # 1 Right Upper Abdomen NUPUR 60 / 60 Drain Other: # Voids 1 10 Date of Last Bowel Movement 08/01/18 08/01/18 Narrative: GENERAL: Alert and awake female resting in bed in no acute distress. SKIN: Warm and dry. CARDIOVASCULAR: Regular rate and rhythm. RESPIRATORY: No accessory muscle use. Clear to auscultation. Breath sounds equal bilaterally. GASTROINTESTINAL: Abdomen soft, mildly distended. RUQ tenderness with palpation. Well healed lower midline incision. MUSCULOSKELETAL: Extremities without clubbing, cyanosis, or edema. No obvious deformities. NEUROLOGICAL: Awake and alert. No obvious cranial nerve deficits. Motor grossly within normal limits. Five out of 5 muscle strength in the arms and legs. Normal speech. This is a 54-year-old female with a history of hypertension. She presents with abdominal pain, nausea, vomiting, fever and chills. CT shows acute cholecystitis and dilated common bile duct Sepsis on admission Meets sepsis criteria(WC and RR). Continue Flagyl to Zosyn IV. Monitor closely Acute cholecystitis. IV hydration and pain management with IV morphine general surgery Status post laparoscopic cholecystectomy by Dr. Batres. Drain in place Dilated common bile duct. Normal CBD without stones per MRCP . Diet, 2.2 cm mass of the right kidney. Outpatient MRI Normocytic normochromic anemia. No gross bleeding. Will monitor Hypokalemia potassium 3 magnesium 1.8. Replaced. DVT prophylaxis with SCD Restart home medications when diet started Discharge Planning: Per GS Discussed with the patient, nurse Results - Labs CBC & Chem 7: 08/04/18 06:14 08/04/18 06:14 Laboratory Results - last 24 hr 08/04/18 08/04/18 06:14 06:14 WBC 12.3 H RBC 3.29 L Hgb 9.1 L Hct 27.5 L MCV 83.6 MCH 27.8 MCHC 33.3 RDW 14.3 Plt Count 505 H MPV 7.9 Neut % (Auto) 78.8 H Lymph % (Auto) 13.1 [place] % (Auto) 7.8 Eos % (Auto) 0.0 Baso % (Auto) 0.3 Neut # (Auto) 9.7 H Lymph # (Auto) 1.6 [place] # (Auto) 1.0 H Eos # (Auto) 0.0 Baso # (Auto) 0.0 WBC Differential . Differential Comment Auto diff final Sodium 140 Potassium 3.4 L Chloride 102 Carbon Dioxide 28.1 Anion Gap 10 BUN 7 Creatinine 0.58 Estimated GFR Greater than 89 Random Glucose 122 H Calcium 8.1 L Magnesium 1.7
[2018-08-05] MEDS: Piperacil/Tazo 3.375 GM Premix 50 ML IV.SIG SCH ×2 (01:20→11:15)
[2018-08-05] MEDS: Morphine Inj 4 MG/ML Vial IV.PUSH PRN (06:37)
--- NOTE | 2018-08-05 08:49 | P.PNGS ---
Subjective Patient reports: feels better, pain is less, flatus Physical Exam Vital signs: Vital Signs 08/04/18 12:00 08/04/18 16:00 08/04/18 20:00 Temperature 97.5 F L 97.3 F L 97.0 F L Pulse Rate 75 75 78 Respiratory Rate 17 17 19 Blood Pressure 128/81 105/60 112/66 Pulse Oximetry 96 95 95 08/04/18 23:23 08/05/18 00:00 08/05/18 04:00 Temperature 97.1 F L 97.1 F L Pulse Rate 67 81 Respiratory Rate 18 19 19 Blood Pressure 92/61 L 134/87 Pulse Oximetry 97 93 L 08/05/18 08:00 Temperature 97.8 F Pulse Rate 64 Respiratory Rate 17 Blood Pressure 113/68 Pulse Oximetry 93 L Intake & Output 08/04/18 08/05/18 08/05/18 18:59 06:59 18:59 Intake Total 1150 / 1150 2570 / 2570 Output Total 40 / 40 Balance 1150 / 1150 2570 / 2570 -40 / -40 Weight 74.7 kg Intake: IV 200 / 200 1969 / 1970 KCl Inj 20 MEQ In LR 1000 mL 1620 / 1620 Inj 1,000 ML @ 100 mls/hr IV. CONT .Q10H6M [facility] Rx#:[id number] Zosyn 3.375 GM Premix 50 ML @ 100 / 100 50 / 50 100 mls/hr IV.SIG Q8H [facility] Rx#: [id number] Flagyl 500 MG Inj 100 ML @ 100 100 / 100 300 / 300 mls/hr IV.SIG Q6H [facility] Rx#: [id number] Oral 950 / 950 600 / 600 Output: Wound Drainage 40 / 40 # 1 Right Upper Abdomen ARMOND 40 / 40 Drain Other: # Voids 6 3 Date of Last Bowel Movement 08/01/18 # Bowel Movements 1 - Routine Abdominal Exam Present: soft, tenderness (incisional armond serosang) Results - Labs 08/04/18 06:14 08/04/18 06:14 - Imaging Imaging: ITS Impressions Gallbladder Ultrasound 08/01/18 00:00 CONCLUSION: 1. Abnormal common duct and gallbladder. MRCP would be of benefit. Abdomen/Pelvis CT 08/01/18 02:02 CONCLUSION: 1. CT findings of acute cholecystitis without rupture. There is also apparent biliary obstruction at the level of the distal duct of unclear etiology. I don' t clearly see a mass or stone. 2. 2.2 cm mass of the right kidney, debris-filled cyst versus partly solid mass. Nonemergent outpatient abdomen MRI with and without contrast recommended. 3. Benign-appearing right ovarian cyst. 4. Sigmoid colon diverticulosis without diverticulitis. Cholangiopancreatography MRI 08/01/18 11:27 CONCLUSION: 1. Sludge in the gallbladder. 2. Normal common duct without evidence for common duct stones. Assessment and Plan - Assessment (1) Cholecystitis Code(s): K81.9 - Cholecystitis, unspecified Status: Acute Plan: 53 year old female with RUQ abdominal pain -POD2 lap sammy; pus filled gallbladder -soft diet -OOB and mobilize -Continue routine ARMOND care - will plan to d/c prior to discharge -change to PO abx- needs 1 week po abx at home - possible d/c tonight or tomorrow - ok to shower no bath tub - f/u [address] Batres
[2018-08-05] MEDS: Sodium Chloride 0.9% 2 ML Flush BID IV.FLUSH SCH (09:42)
[2018-08-05 10:33] LABS: Baso # (Auto) 0.1 th/mm3 (0.0-0.2); Baso % (Auto) 0.8 % (0.0-2.0); Eos # (Auto) 0.6 th/mm3 (0.0-0.4); Eos % (Auto) 5.5 % (0.0-4.0); Hematocrit 24.3 % (35.0-46.0); Lymph # (Auto) 2.5 th/mm3 (1.0-4.8); Lymph % (Auto) 22.7 % (9.0-44.0); Mean Corpuscular Hemoglobin 27.9 pg (27.0-34.0); Mean Corpuscular Volume 84.3 fL (80.0-100.0); Mean Platelet Volume 8.1 fL (7.0-11.0); Mono # (Auto) 0.8 th/mm3 (0.0-0.9); Platelet Count 444 th/mm3 (150-450); Red Blood Count 2.88 mil/mm3 (4.00-5.30); Red Cell Distribution Width 14.5 % (11.6-17.2); White Blood Count 10.9 th/mm3 (4.0-11.0)
[2018-08-05 10:53] LABS: Anion Gap 7 meq/L (5-15); Blood Urea Nitrogen 9 mg/dL (7-18); Calcium 7.8 mg/dL (8.5-10.1); Carbon Dioxide 28.7 meq/L (21.0-32.0); Chloride 105 meq/L (98-107); Glomerular Filtration Rate Greater Than 89 mL/min (>89); Glucose,Random 150 mg/dL (74-106); Potassium 3.2 meq/L (3.5-5.1); Sodium 141 meq/L (136-145)
[2018-08-05] MEDS: HYDROmorphone PF Inj 1 MG/ML Ampul IV.PUSH PRN ×2 (11:14→15:55)
--- NOTE | 2018-08-05 15:14 | P.PN ---
Subjective Interval history: Patient was seen earlier today. She is ambulating in the room she has pain at the surgical site. Drain in place. Tolerates clear liquid diet advance diet as per surgeon. Passing gas had a bowel movement. No nausea or vomiting. Possible discharge later today or tomorrow morning if cleared by surgeon and if able to tolerate food and pain is better controlled. Physical Exam Vital signs: Vital Signs 08/04/18 16:00 08/04/18 20:00 08/04/18 23:23 Temperature 97.3 F L 97.0 F L Pulse Rate 75 78 Respiratory Rate Blood Pressure 105/60 112/66 Pulse Oximetry 95 95 08/05/18 00:00 08/05/18 04:00 08/05/18 08:00 Temperature 97.1 F L 97.1 F L 97.8 F Pulse Rate 67 81 64 Respiratory Rate Blood Pressure 92/61 L 134/87 113/68 Pulse Oximetry 97 93 L 93 L 08/05/18 11:58 Temperature 97.1 F L Pulse Rate 69 Respiratory Rate 17 Blood Pressure 107/69 Pulse Oximetry 92 L Intake & Output 08/04/18 08/05/18 08/05/18 18:59 06:59 18:59 Intake Total 1150 / 1150 2570 / 2570 50 / 50 Output Total 40 / 40 Balance 1150 / 1150 2570 / 2570 10 10 Weight 74.7 kg Intake: IV 200 / 200 1969 / 1969 50 / 50 KCl Inj 20 MEQ In LR 1000 mL 1620 / 1620 Inj 1,000 ML @ 100 mls/hr IV. CONT .Q10H6M [facility] Rx#:[id number] Zosyn 3.375 GM Premix 50 ML @ 100 / 100 50 / 50 50 / 50 100 mls/hr IV.SIG Q8H [facility] Rx#: [id number] Flagyl 500 MG Inj 100 ML @ 100 100 / 100 300 / 300 mls/hr IV.SIG Q6H [facility] Rx#: [id number] Oral 950 / 950 600 / 600 Output: Wound Drainage 40 / 40 # 1 Right Upper Abdomen NUPUR 40 / 40 Drain Other: # Voids 6 3 Date of Last Bowel Movement 08/01/18 # Bowel Movements 1 Narrative: GENERAL: Alert and awake female resting in bed in no acute distress. CARDIOVASCULAR: Regular rate and rhythm. RESPIRATORY: No accessory muscle use. Clear to auscultation. Breath sounds equal bilaterally. GASTROINTESTINAL: Abdomen soft, mildly distended. RUQ tenderness with palpation. Well healed lower midline incision. Drain in place. MUSCULOSKELETAL: Extremities without clubbing, cyanosis, or edema. No obvious deformities. NEUROLOGICAL: Awake and alert. No obvious cranial nerve deficits. Motor grossly within normal limits. Five out of 5 muscle strength in the arms and legs. Normal speech. PSYCHIATRIC: Appropriate mood and affect; insight and judgment normal. Results - Labs CBC & Chem 7: 08/05/18 09:57 08/05/18 09:57 Laboratory Results - last 24 hr 08/05/18 08/05/18 09:57 09:57 WBC 10.9 RBC 2.88 L Hgb 8.0 L Hct 24.3 L MCV 84.3 MCH 27.9 MCHC 33.0 RDW 14.5 Plt Count 444 MPV 8.1 Neut % (Auto) 64.0 Lymph % (Auto) 22.7 [place] % (Auto) 7.0 Eos % (Auto) 5.5 H Baso % (Auto) 0.8 Neut # (Auto) 7.0 Lymph # (Auto) 2.5 [place] # (Auto) 0.8 Eos # (Auto) 0.6 H Baso # (Auto) 0.1 WBC Differential . Differential Comment Auto diff final Sodium 141 Potassium 3.2 L Chloride 105 Carbon Dioxide 28.7 Anion Gap 7 BUN 9 Creatinine 0.65 Estimated GFR Greater than 89 Random Glucose 150 H Calcium 7.8 L Assessment and Plan - Plan This is a 54-year-old female with a history of hypertension. She presents with abdominal pain, nausea, vomiting, fever and chills. CT shows acute cholecystitis and dilated common bile duct Sepsis on admission Meets sepsis criteria(WC and RR). Continue Flagyl to Zosyn IV. Monitor closely Acute cholecystitis. IV hydration and pain management with IV morphine general surgery Status post laparoscopic cholecystectomy by Dr. Batres. Drain in place Dilated common bile duct. Normal CBD without stones per MRCP . Diet, 2.2 cm mass of the right kidney. Outpatient MRI Normocytic normochromic anemia. No gross bleeding. Will monitor Hypokalemia potassium 3 magnesium 1.8. Replaced. DVT prophylaxis with SCD Restart home medications when diet started Discharge Planning: Per GS. Advance diet. If patient able to tolerate diet and if pain is better controlled and patient is cleared by surgery, the patient might be discharged later tonight or tomorrow morning. Discussed with the patient, nurse
--- NOTE | 2018-08-05 18:03 | P.DS ---
Date of admission: 08/01/18 10:36 Primary care physician: UNKNOWN Brief History from admission: This is a 54-year-old female with a history of hypertension. She presents to the emergency department because of abdominal pain for 1 week. She describes a sharp right upper quadrant pain initially intermittent becoming severe and constant associated with nausea, vomiting, subjective fever and chills. No precipitating or alleviating factors. Denies UTI symptoms, constipation and diarrhea. Abdominal CT with acute cholecystitis and dilated common bile duct. Also has 2.2 cm mass of the right kidney. Ultrasound with abnormal common bile duct and gallbladder and recommended MRCP. Surgery has recommended laparoscopic surgery pending MRCP. All other systems reviewed negative DS: Diagnosis - Discharge Diagnosis (1) Cholecystitis Status: Acute DS: Medications - Discharge Medications Prescriptions: amoxicillin-pot clavulanate [Augmentin] 1 tab PO Q12H 7 Days #14 tab oxycodone-acetaminophen 1 tab PO Q4H PRN #18 tab PRN Reason: acute post op pain exception DS: Summary Hospital Course: This is a 54-year-old female with a history of hypertension. She presents with abdominal pain, nausea, vomiting, fever and chills. CT shows acute cholecystitis and dilated common bile duct Sepsis on admission Meets sepsis criteria(WC and RR). Continue Flagyl to Zosyn IV. Monitor closely. Acute cholecystitis. IV hydration and pain management with IV morphine general surgery Status post laparoscopic cholecystectomy by Dr. Batres. Drain in place Dilated common bile duct. Normal CBD without stones per MRCP Tolerates diet. Cleared by surgeon for DC 2.2 cm mass of the right kidney. Outpatient MRI Normocytic normochromic anemia. No gross bleeding. Will monitor Hypokalemia potassium 3 magnesium 1.8. Replaced. Improved DC home in stable condition to follow up as OP with PCP and consultants. - Time Spent with Patient Total time spent providing and/or coordinating discharge services: Greater than 30 minutes - Quality: VTE Deep Vein Thrombosis/Pulmonary Embolism Present on Admission: No Exam Vital signs: Vital Signs 08/04/18 20:00 08/04/18 23:23 08/05/18 00:00 Temperature 97.0 F L 97.1 F L Pulse Rate 78 67 Respiratory Rate 19 18 19 Blood Pressure 112/66 92/61 L Pulse Oximetry 95 97 08/05/18 04:00 08/05/18 08:00 08/05/18 11:58 Temperature 97.1 F L 97.8 F 97.1 F L Pulse Rate 81 64 69 Respiratory Rate 19 17 17 Blood Pressure 134/87 113/68 107/69 Pulse Oximetry 93 L 93 L 92 L 08/05/18 16:00 Temperature 97.2 F L Pulse Rate 63 Respiratory Rate 17 Blood Pressure 102/58 L Pulse Oximetry 93 L Intake & Output 08/04/18 08/05/18 08/05/18 18:59 06:59 18:59 Intake Total 1150 / 1150 2570 / 2570 50 / 50 Output Total 40 / 40 Balance 1150 / 1150 2570 / 2570 10 10 Weight 74.7 kg Intake: IV 200 / 200 1969 / 1970 50 / 50 KCl Inj 20 MEQ In LR 1000 mL 1620 / 1620 Inj 1,000 ML @ 100 mls/hr IV. CONT .Q10H6M [facility] Rx#:[id number] Zosyn 3.375 GM Premix 50 ML @ 100 / 100 50 / 50 50 / 50 100 mls/hr IV.SIG Q8H [facility] Rx#: [id number] Flagyl 500 MG Inj 100 ML @ 100 100 / 100 300 / 300 mls/hr IV.SIG Q6H [facility] Rx#: [id number] Oral 950 / 950 600 / 600 Output: Wound Drainage 40 / 40 # 1 Right Upper Abdomen NUPUR 40 / 40 Drain Other: # Voids 6 3 Date of Last Bowel Movement 08/01/18 # Bowel Movements 1 Narrative: GENERAL: Alert and awake female resting in bed in no acute distress. CARDIOVASCULAR: Regular rate and rhythm. RESPIRATORY: No accessory muscle use. Clear to auscultation. Breath sounds equal bilaterally. GASTROINTESTINAL: Abdomen soft, mildly distended. RUQ tenderness with palpation. Well healed lower midline incision. Drain in place. MUSCULOSKELETAL: Extremities without clubbing, cyanosis, or edema. No obvious deformities. NEUROLOGICAL: Awake and alert. No obvious cranial nerve deficits. Motor grossly within normal limits. Five out of 5 muscle strength in the arms and legs. Normal speech. PSYCHIATRIC: Appropriate mood and affect; insight and judgment normal. Results Procedures completed during hospitalization: karely christianson by Dr Batres Completed studies during hospitalization: Pending at discharge 08/03/18 07:48 Surgical [PTH] Routine Labs on day of discharge: Labs from last 24 hours 08/05/18 08/05/18 09:57 09:57 WBC 10.9 RBC 2.88 L Hgb 8.0 L Hct 24.3 L MCV 84.3 MCH 27.9 MCHC 33.0 RDW 14.5 Plt Count 444 MPV 8.1 Neut % (Auto) 64.0 Lymph % (Auto) 22.7 Hart % (Auto) 7.0 Eos % (Auto) 5.5 H Baso % (Auto) 0.8 Neut # (Auto) 7.0 Lymph # (Auto) 2.5 Hart # (Auto) 0.8 Eos # (Auto) 0.6 H Baso # (Auto) 0.1 WBC Differential . Differential Comment Auto diff final Sodium 141 Potassium 3.2 L Chloride 105 Carbon Dioxide 28.7 Anion Gap 7 BUN 9 Creatinine 0.65 Estimated GFR Greater than 89 Random Glucose 150 H Calcium 7.8 L - Impressions ITS Impressions Gallbladder Ultrasound 08/01/18 00:00 CONCLUSION: 1. Abnormal common duct and gallbladder. MRCP would be of benefit. Abdomen/Pelvis CT 08/01/18 02:02 CONCLUSION: 1. CT findings of acute cholecystitis without rupture. There is also apparent biliary obstruction at the level of the distal duct of unclear etiology. I don' t clearly see a mass or stone. 2. 2.2 cm mass of the right kidney, debris-filled cyst versus partly solid mass. Nonemergent outpatient abdomen MRI with and without contrast recommended. 3. Benign-appearing right ovarian cyst. 4. Sigmoid colon diverticulosis without diverticulitis. Cholangiopancreatography MRI 08/01/18 11:27 CONCLUSION: 1. Sludge in the gallbladder. 2. Normal common duct without evidence for common duct stones. Discharge Plan - Discharge Disposition Patient Disposition: Discharge Home - Discharge Condition Condition: Stable - Discharge Order Discharge Orders: Discharge Order (Routine); Ordered 08/05/18 Ordered By: Katelyn Kwok - Discharge Details Anticipated Discharge Date: 08/01/18 - Physicians Team Primary Care Provider: UNKNOWN, Attending Provider: Katelyn Kwok Other Providers: Leo Mariee MD ; Caron Cheney MD
== END 2018-08-05 20:53 | disposition home or self-care (01) ==
LOC: NEPE 21:09 → INTOOBSV 08-01 04:21 → NEDA 08-01 04:21 → NEPFCDU 08-01 06:05 → N07 08-03 10:59
PROVIDERS: ADMIT Hospitalist; ATTEND Hospitalist